=== PATIENT | female | born 1970 | race Caucasian/White ===

== ENCOUNTER 2020-10-05 14:18 | Outpatient (REF) | payer OTHER, SELFPAY | END 2020-10-05 14:19 | disposition home or self-care (01) | LOC: HO.LAB 14:18 | PROVIDERS: Visit Provider Internal Medicine | DX: Z20.828 Contact with and (suspected) exposure to other viral communicable diseases (principal) | CPT/HCPCS: C9803; U0003 ==

== ENCOUNTER 2021-01-30 08:33 | Day surgery (SDC) | payer OTHER, SELFPAY ==
[2021-01-24 11:41] VITALS: BMI 28.2
[2021-01-30 08:44] VITALS: BP 116/73; PULSE 78; RESP 20; TEMP 36.4; O2SAT 98
--- NOTE | 2021-01-30 09:20 | HO.ANESPROP2 ---
[facility] Past Medical History Medical History Arthritis History of COVID-19 Surgical History Surgical History History of bladder suspension procedure Hx of abdominoplasty Hx of tubal ligation Social History Social History Alcohol intake: current Alcohol intake frequency: a few times a week Alcohol type: beer Smoking Status: Current every day smoker Cigarettes Per Day: 5 Smoked in Last 30 Days: Yes Use of substances other than those prescribed or required for medical reasons: No Advance Directives: No Advance Directives Information Provided: No Advance Directives on File: No Meds Allergies Allergy/AdvReac Type Severity Reaction Status Date / Time No Known Allergies Allergy Verified 01/24/21 11:28 Active Medications: Current Medications Generic Name Dose Route Start Last Admin Trade Name Freq PRN Reason Stop Dose Admin Sodium Biphosphate/Sodium Phosphate 133 ml 01/30/21 08:31 Sodium Phosphate,[place]-Dibasic 133 Ml Enema [place] ONCE PRN Poor Colonoscopy Prep Results Home Medications Medication Instructions Recorded Confirmed Last Taken Type Vitamin D3 01/24/21 01/24/21 Unknown History vitamin I35-cjuqp acid 01/24/21 Unknown History Exam Exam Date and Time: January 30, 2021 0920 Height,Weight and Vital Signs: Height 5 ft 6 in Weight 79.379 kg Last Vital Signs Temp 97.5 F 01/30/21 08:44 Pulse 78 01/30/21 08:44 Resp 20 01/30/21 08:44 BP 116/73 01/30/21 08:44 Pulse Ox 98 01/30/21 08:44 Airway Mallampati Class: II TM Dist: >3cm Neck ROM: Full
[2021-01-30] MEDS: Lactated Ringers 1,000 ML 100 ML IVCONT (09:31)
[2021-01-30 10:25] VITALS: BP 90/55; PULSE 72; RESP 18; TEMP 36.4; O2SAT 98
--- NOTE | 2021-01-30 10:27 | PM.OP ---
Brief Operative Note Date of Service: 01/30/21 Pre-op diagnosis: Screening Post-op diagnosis: other (Int/Ext Hemorrhoids, mild sigmoid diverticulosis) Procedure: Colonoscopy to cecum and TI Surgeon: Evangelista Pineda Anesthesia: MAC Estimated blood loss (mL): 0 Pathology: none sent Condition: stable Disposition: PACU
[2021-01-30 10:30] VITALS: PULSE 73; RESP 18; O2SAT 100
[2021-01-30 10:40] VITALS: BP 103/67; PULSE 77; RESP 16; O2SAT 100
--- NOTE | 2021-01-30 10:57 | OP_ITS ---
SURGEON: Evangelista Pineda MD INDICATIONS: The patient presents for evaluation of colorectal cancer screening. Full consent has been obtained from her for this, including risks of bleeding and perforation. PREOPERATIVE DIAGNOSIS: Colorectal cancer screening. POSTOPERATIVE DIAGNOSIS: PROCEDURE PERFORMED: Colonoscopy to the cecum and terminal ileum. ESTIMATED BLOOD LOSS: COMPLICATIONS: ANESTHESIA: Monitored anesthesia care. ASSISTANTS: SPECIMENS: POSTOPERATIVE DIAGNOSES: Colorectal cancer screening, sigmoid diverticulosis, and internal hemorrhoids. DESCRIPTION OF PROCEDURE: The patient was placed in the left lateral decubitus position. The digital rectal exam revealed external hemorrhoids. The Olympus video pediatric colonoscope was entered into the rectum and advanced easily to the cecum. Once in the cecum, I did identify normal-appearing cecal pouch with appendiceal orifice and a normal-appearing ileocecal valve. The terminal ileum was cannulated and appeared normal. The scope was withdrawn back in the colon. The entire cecum and ileocecal valve appeared normal. The scope was slowly withdrawn assessing all mucosal surfaces carefully. Preparation was excellent. I did not visualize any sign of polyps, colitis, nor angiodysplasia. There were occasional diverticula in the sigmoid colon. In the rectum, scope was retroflexed visualizing internal hemorrhoids, but no other pathology. The rectal mucosa appeared normal. The scope was straightened out and withdrawn from the patient. She tolerated the procedure well and was returned to the recovery area in stable condition. IMPRESSION: 1. Mild sigmoid diverticulosis. 2. Internal and external hemorrhoids. PLAN: Given this negative exam and negative family history, I would recommend a followup colonoscopy in 10 years for further screening. She will otherwise see me on a p.r.n. basis. Evangelista Pineda MD [facility] / [id number] MTDD
== END 2021-01-30 11:52 | disposition home or self-care (01) ==
PROVIDERS: PCP Internal Medicine; Visit Provider Internal Medicine
PROC: 0DJD8ZZ Inspection of Lower Intestinal Tract, Via Natural or Artificial Opening Endoscopic (ICD-10-PCS; CPT 45378; principal; 2021-01-30 10:00)
DX: Z12.11 Encounter for screening for malignant neoplasm of colon (principal); K57.30 Diverticulosis of large intestine without perforation or abscess without bleeding; K64.8 Other hemorrhoids; Z86.16 Personal history of COVID-19; F17.210 Nicotine dependence, cigarettes, uncomplicated
CPT/HCPCS: 45378

== ENCOUNTER 2021-06-07 13:52 | Outpatient (REF) | payer OTHER, SELFPAY ==
--- NOTE | ~2021-06-07 | MM_ITS ---
EXAMINATION: MM SCREENING DIGITAL BREAST TOMOSYNTHESIS, BILATERAL CLINICAL INFORMATION: Screening. Asymptomatic. Reduction mammoplasty 2013. The lifetime risk of breast cancer based on the Tyrer-Cuzick Model is 8%. COMPARISON: Mammography: 05/19/2020, 05/14/2019, 04/29/2018 TECHNIQUE: Digital breast tomosynthesis is performed in both the craniocaudal and mediolateral oblique views along with computer-aided detection (CAD). Synthesized 2D images are generated from the tomosynthesis. FINDINGS: There are scattered areas of fibroglandular density (ACR BI-RADS breast composition Category b). There are no significant masses, abnormal calcifications, or other abnormalities. There is minor scarring and stable benign round and rim calcifications in the anterior breasts consistent with prior reduction mammoplasty. No developing density. No significant changes. MM/MM tomosynthesis screening BI IMPRESSION: No mammographic evidence of malignancy. ASSESSMENT: BI-RADS 2: Benign RECOMMENDATION: Routine annual mammography screening. This patient's information was entered into a reminder system with a target due date for their next mammogram.
== END 2021-06-07 13:53 | disposition home or self-care (01) ==
LOC: HO.MAMMO 13:52
PROVIDERS: PCP Internal Medicine; Visit Provider Internal Medicine
DX: Z12.31 Encounter for screening mammogram for malignant neoplasm of breast (principal)
CPT/HCPCS: 77063; 77067

== ENCOUNTER 2021-12-05 13:26 | Outpatient (REF) | payer OTHER, SELFPAY ==
--- NOTE | ~2021-12-05 | US_ITS ---
EXAMINATION: BILATERAL LOWER EXTREMITY DUPLEX CLINICAL INFORMATION: Cramping and spasm TECHNIQUE: Real-time ultrasound and Doppler techniques (integrating B-mode 2-D vascular images, Doppler spectral analysis and color flow Doppler imaging) were utilized to interrogate the lower extremities. COMPARISON: None FINDINGS: RIGHT LEG: Common femoral artery: 283 cm/s, Triphasic Profunda femoris artery: 104 cm/s, Triphasic Superficial femoral artery (proximal): 156 cm/s, Triphasic Superficial femoral artery (mid): 110 cm/s, Triphasic Superficial femoral artery (distal): 68 cm/s, Triphasic Popliteal artery: 69 cm/s, Triphasic Posterior tibial artery: 132 cm/s, Triphasic LEFT LEG: Common femoral artery: 188 cm/s, Triphasic Profunda femoris artery: 85 cm/s, Triphasic Superficial femoral artery (proximal): 151 cm/s, Triphasic Superficial femoral artery (mid): 122 cm/s, Triphasic Superficial femoral artery (distal): 75 cm/s, Triphasic Popliteal artery: 62 cm/s, Triphasic Posterior tibial artery: 119 cm/s, Triphasic US/US arterial duplex LE BI IMPRESSION: There is no evidence of any hemodynamically significant lower extremity arterial disease by waveform. There are elevated velocities bilaterally, however no plaque is identified so this may be either artifact or secondary to hypertension.
== END 2021-12-05 13:27 | disposition home or self-care (01) ==
LOC: HO.US 13:26
PROVIDERS: Visit Provider Family Medicine
DX: R25.2 Cramp and spasm (principal)
CPT/HCPCS: 93925

== ENCOUNTER → 2022-05-08 09:12 | Outpatient (BNVA) | payer OTHER, SELFPAY | PROVIDERS: PCP Internal Medicine; Visit Provider Surgery Vascular Surgery | DX: I83.12 Varicose veins of left lower extremity with inflammation (principal) | CPT/HCPCS: 99202 ==

== ENCOUNTER 2022-06-25 13:02 | Outpatient (REF) | payer OTHER, SELFPAY ==
--- NOTE | ~2022-06-25 | MM_ITS ---
EXAMINATION: MM SCREENING DIGITAL BREAST TOMOSYNTHESIS, BILATERAL CLINICAL INFORMATION: Screening. Asymptomatic. Prior reduction mammoplasty, 2013. The lifetime risk of breast cancer based on the Tyrer-Cuzick Model is 6%. COMPARISON: Mammography: 06/07/2021, 05/19/2020, 05/14/2019 TECHNIQUE: Digital breast tomosynthesis is performed in both the craniocaudal and mediolateral oblique views along with computer-aided detection (CAD). Synthesized 2D images are generated from the tomosynthesis. FINDINGS: There are scattered areas of fibroglandular density (ACR BI-RADS breast composition Category b). Parenchymal pattern is similar to prior studies. There is minor scarring and bilateral scattered round and rim and dermal calcifications anterior breasts consistent with prior reduction mammoplasty. There is no developing density or interval mass or architectural abnormality. No interval abnormal calcifications. Intramammary node again seen mid upper outer right breast. The axilla are unremarkable. No significant changes. MM/MM tomosynthesis screening BI IMPRESSION: -No mammographic evidence of malignancy. -Post surgical changes. ASSESSMENT: BI-RADS 2: Benign RECOMMENDATION: Routine annual mammography screening. This patient's information was entered into a reminder system with a target due date for their next mammogram.
== END 2022-06-25 13:03 | disposition home or self-care (01) ==
LOC: HO.MAMMO 13:02
PROVIDERS: Visit Provider Internal Medicine
DX: Z12.31 Encounter for screening mammogram for malignant neoplasm of breast (principal)
CPT/HCPCS: 77063; 77067

== ENCOUNTER 2022-07-10 10:18 | Outpatient (REF) | payer OTHER, SELFPAY ==
--- NOTE | ~2022-07-10 | US_ITS ---
EXAMINATION: US LOWER EXTREMITY VENOUS (REFLUX EXAM), BILATERAL CLINICAL INDICATION: This is a 51-year-old female with venous insufficiency and varicose veins. History of left sclerotherapy. COMPARISON: None. TECHNIQUE: Color flow triplex imaging and compression Doppler was performed to evaluate both the deep and the superficial systems bilaterally. To evaluate the superficial system, the examination was performed in the upright position. Color-flow Doppler ultrasound and compression ultrasound were utilized. In addition, maneuvers were utilized to demonstrate reflux. FINDINGS: 1. DEEP VENOUS ULTRASOUND OF THE RIGHT LOWER EXTREMITY: Common Femoral Vein: Compressible, normal respiratory variation and augmented flow. Femoral vein: Compressible, normal color flow and augmentation. Popliteal Vein: Compressible, normal augmentation. Deep Reflux: There is no evidence of reflux in the deep system in either the common femoral vein or the popliteal vein. There is no evidence of a Lazcano's cyst. 2. SUPERFICIAL ULTRASOUND WITH DOPPLER OF RIGHT LOWER EXTREMITY: GREAT SAPHENOUS VEIN: Saphenofemoral Junction: 0.8 cm. There is no reflux. Mid Thigh: 0.3 cm. There is no reflux. Above Knee: 0.4 cm. There is no evidence of reflux at this level and above. Below Knee: 0.2 cm. The reflux time is 1272 ms. Mid Calf: 0.2 cm. The reflux time is 884 ms. Ankle: 0.2 cm. There is no reflux. GSV REFLUX: No evidence of reflux. DUPLICATED GREAT SAPHENOUS VEIN: None SMALL SAPHENOUS VEIN: Proximal: 0.2 cm Distal: 0.2 cm SSV REFLUX: No evidence of reflux. VEIN OF GIACOMINI: None Imaged. PERFORATORS: There is a 0.3 cm mid calf recycling manager without reflux. VARICOSITIES: There are 0.5 cm and 0.3 cm thigh varicose veins without reflux. 3. DEEP VENOUS ULTRASOUND OF THE LEFT LOWER EXTREMITY: Common Femoral Vein: Compressible, normal respiratory variation and augmented flow. Femoral Vein: Compressible, normal color flow and augmentation. Popliteal Vein: Compressible, normal augmentation. Deep Reflux: There is no evidence of reflux in the deep system in either the common femoral vein or the popliteal vein. There is no evidence of a Lazcano's cyst. 4. SUPERFICIAL ULTRASOUND WITH DOPPLER OF LEFT LOWER EXTREMITY: GREAT SAPHENOUS VEIN: Saphenofemoral Junction: 0.8 cm. There is no reflux. Mid Thigh: 0.3 cm Above Knee: 0.3 cm. There is no reflux. Below Knee: 0.2 cm. The reflux time is 1192 ms. Mid Calf: 0.2 cm. There is no reflux to Ankle: 0.1 cm. There is no reflux. GSV REFLUX: There is only isolated reflux present. No reflux is seen at the junction. DUPLICATED GREAT SAPHENOUS VEIN: None SMALL SAPHENOUS VEIN: Proximal: 0.2 cm. There is no reflux. Distal: 0.1 cm. The reflux time is 1528 ms per SSV REFLUX: No evidence of reflux. VEIN OF GIACOMINI: None Imaged. PERFORATORS: There are 0.2 cm perforators in the calf without reflux. VARICOSITIES: None Imaged US/US venous duplex LE BI IMPRESSION: 1. Incidental note is made of fluid collections in the proximal medial thighs bilaterally. Clinical correlation is recommended. 2. There is a patent right great saphenous vein without evidence of reflux at the junction and extending down to the knee. Some reflux is seen in the calf. 3. There is a patent right small saphenous vein without evidence of reflux. 4. There are right-sided varicose veins without reflux. 5. There is a patent left great saphenous vein without evidence of reflux at the junction and into the thigh. 6. There is a patent left small saphenous vein without reflux at the junction. Distal reflux is seen.
== END 2022-07-10 10:19 | disposition home or self-care (01) ==
LOC: HO.US 10:18
PROVIDERS: Visit Provider Surgery Vascular Surgery
DX: I83.12 Varicose veins of left lower extremity with inflammation (principal)
CPT/HCPCS: 93970

== ENCOUNTER → 2022-07-17 09:41 | Outpatient (BNVA) | payer OTHER, SELFPAY | PROVIDERS: PCP Internal Medicine; Visit Provider Surgery Vascular Surgery | DX: I83.12 Varicose veins of left lower extremity with inflammation (principal) | CPT/HCPCS: 99212 ==

== ENCOUNTER 2023-01-30 11:37 | Outpatient (REF) | payer OTHER, SELFPAY ==
--- NOTE | 2023-01-30 10:15 | EMG_ITS ---
Please see scanned EMG / Nerve Conduction Report. MTDD
== END 2023-01-30 11:38 | disposition home or self-care (01) ==
LOC: HO.NEURO 11:37
PROVIDERS: PCP Internal Medicine; Visit Provider Internal Medicine
DX: G56.03 Carpal tunnel syndrome, bilateral upper limbs (principal)
CPT/HCPCS: 95885; 95913

== ENCOUNTER 2023-07-03 14:08 | Outpatient (REF) | payer OTHER, SELFPAY ==
--- NOTE | ~2023-07-03 | MM_ITS ---
EXAMINATION: MM SCREENING DIGITAL BREAST TOMOSYNTHESIS, BILATERAL CLINICAL INFORMATION: Screening. Asymptomatic. She has a history of prior breast reduction. The lifetime risk of breast cancer based on the Tyrer-Cuzick Model is 6.8%. COMPARISON: Mammography: This study is compared with prior exams dating back to 2017. TECHNIQUE: Digital breast tomosynthesis is performed in both the craniocaudal and mediolateral oblique views along with computer-aided detection (CAD). Synthesized 2D images are generated from the tomosynthesis. FINDINGS: There are scattered areas of fibroglandular density (ACR BI-RADS breast composition Category b). There are no significant masses, abnormal calcifications, or other abnormalities. There are changes of bilateral breast reduction. MM/MM tomosynthesis screening BI IMPRESSION: No mammographic evidence of malignancy. ASSESSMENT: BI-RADS BI-RADS 2 - Benign Findings RECOMMENDATION: Routine annual mammography screening. 1 year F/U This examination should not preclude the clinical evaluation of a suspicious palpable abnormality. This patient's information was entered into a reminder system with a target due date for their next mammogram.
== END 2023-07-03 14:09 | disposition home or self-care (01) ==
LOC: HO.MAMMO 14:08
PROVIDERS: PCP Internal Medicine; Visit Provider Internal Medicine
DX: Z12.31 Encounter for screening mammogram for malignant neoplasm of breast (principal)
CPT/HCPCS: 77063; 77067

== ENCOUNTER → 2023-07-03 14:45 | Outpatient (BNV) | payer OTHER, SELFPAY | PROVIDERS: PCP Internal Medicine; Visit Provider Radiology Diagnostic Radiology | DX: Z12.31 Encounter for screening mammogram for malignant neoplasm of breast (principal) | CPT/HCPCS: 77063; 77067 ==

== ENCOUNTER 2023-11-06 10:36 | Outpatient (AMB) | payer OTHER, SELFPAY ==
--- NOTE | 2023-11-06 10:39 | MHC.OFFVIS ---
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 Patient reports her left is worse. States she is having increase numbness and tingling. Last EMG was done in 2007 and recent EMG was ordered by PCP who referred patient to orthopedics. States she use to wear brace however it is not helping any more. Patient is interested in surgical intervention. 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 She states she has sharp numbness and tingling in her bilateral hands and fingers since 2008 which has been worsening since 2019. Her left hand is worse in her right. Her pain is aggravated with sleeping and talking on phone for long time. She had her last EMG study performed in 2007 and a recent EMG was ordered by her PCP who referred her to our office. She had tried brace in the past which has not been helping anymore. She would like to have a surgical intervention on her left hand. 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[employer] Review of Systems Const All systems reviewed & are unremarkable except as noted in HPI and below Physical Exam Vital Signs: BMI result Body Mass Index 29.9 Const General: cooperative, healthy appearing, comfortable, no acute distress, well developed and alert Orientation/consciousness: patient oriented x3 HEENT Head: Yes normal to inspection, Yes normocephalic and Yes atraumatic Eyes General: appearance normal, both eyes and all related structures Resp Effort & Inspection: normal respiratory effort and able to speak in complete sentences Cardio Rate: regular rate Peripheral pulses: Peripheral pulses 2+ throughout GI Palpation (GI): Soft to palpation Skin Lesions: no lesions Rashes: no rashes Neuro General: patient oriented x3 Extrem Other: Bilateral wrist: Normal to inspection. Tenderness over the carpal canal. Numbness and tingling over the median nerve distribution of the right hand. Able to make a full fist and fully extend all fingers. Positive Tinel's. Results Reviewed Results Reviewed: Assessment & Plan Assessment & Plan (1) Bilateral carpal tunnel syndrome: Code(s): G56.03 - Carpal tunnel syndrome, bilateral upper limbs Plan We discussed options which include conservative vs operative treatment. Since the patient has been symptomatic for several months and it is impacting their daily life, the decision was made to undergo right carpal tunnel release. We discussed risk, benefits and alternatives. Risk including but not limited to infection, weakness, stiffness, ongoing numbness or tingling. The patient does understand all this and would like to proceed with left carpal tunnel release with Dr. New. They will be booked accordingly. Patient Instructions: Scribed for Randy Carter PA-C, by Lee England bio medical technician, on 11/06/2023 at 11:00 AM EST. IRandy PA-C, have personally reviewed and agree with the information entered by the scribe. Coding Level of Care Code New Pt Level 4 (54911) Diagnoses Bilateral carpal tunnel syndrome G56.03
[2023-11-06 10:54] VITALS: BMI 29.9
== END 2023-11-06 11:19 | disposition home or self-care (01) ==
PROVIDERS: PCP Internal Medicine; Visit Provider Physician Assistant
DX: G56.03 Carpal tunnel syndrome, bilateral upper limbs (principal)
CPT/HCPCS: 99204

== ENCOUNTER → 2023-11-06 10:36 | Outpatient (BNVA) | payer OTHER, SELFPAY | PROVIDERS: PCP Internal Medicine; Visit Provider Physician Assistant | DX: G56.03 Carpal tunnel syndrome, bilateral upper limbs (principal) | CPT/HCPCS: 99202 ==

== ENCOUNTER 2024-02-05 09:34 | Outpatient (REF) | payer OTHER, SELFPAY ==
[2024-02-05 11:19] LABS: MANUAL DIFF FLAG NO
[2024-02-05 11:38] LABS: Basophils Absolute Auto 0.1 X10*3/uL (0.0-0.2); Basophils Percent Auto 0.7 % (0-2); Eosinophils Absolute Auto 0.3 X10*3/uL (0.0-0.4); Eosinophils Percent Auto 4.2 % (0-4); Hematocrit 43.4 % (37.0-47.0); Hemoglobin 13.9 g/dl (12.0-16.0); Imm Gran Abs Auto 0.02 X10*3/uL (0.00-0.03); Imm Gran Pct Auto 0.3 % (0.0-0.4); Lymphocytes Absolute Auto 2.1 X10*3/uL (1.2-4.9); Lymphocytes Percent Auto 29.2 % (20-40); Mean Corpuscular Volume 90.6 fL (80.0-98.0); Mean Platelet Volume 12.3 fL (9.4-12.3); Monocytes Absolute Auto 0.6 X10*3/uL (0.1-1.2); Monocytes Percent Auto 8.2 % (2-11); Neutrophils Absolute Auto 4.2 x10*3/uL (2.0-8.3); Neutrophils Percent Auto 57.4 % (45-73); Platelet Count 220 X10*3/uL (160-400); Red Blood Count 4.79 X10*6/uL (4.20-5.50); Red Cell Distribution Width 12.3 % (11.0-16.0); White Blood Count 7.3 X10*3/uL (4.8-10.8)
[2024-02-05 12:17] LABS: Alanine Aminotransferase 18 U/L (0-31); Albumin Level 4.2 g/dL (3.5-5.0); Alkaline Phosphatase 70 U/L (39-117); Anion Gap 11 (12-20); Aspartate Amino Transferase 18 U/L (5-31); Bilirubin Total 0.9 mg/dL (0.0-1.0); Blood Urea Nitrogen 12 mg/dL (9-16); Calcium 9.5 mg/dL (8.4-10.2); Carbon Dioxide 30 mmol/L (22-29); Chloride 105 mmol/L (96-108); Cholesterol 215 mg/dL (<200); Estimated Glomerular Filt Rate > 60; Glucose Random 94 mg/dL (60-115); HDL Cholesterol 47 mg/dL (>40); LDL Cholesterol Calculated 141 mg/dL (<100); Potassium 4.2 mmol/L (3.3-5.1); Sodium 142 mmol/L (135-145); Total Protein 7.2 g/dL (6.5-8.0); Triglycerides 137 mg/dL (<150)
[2024-02-05 12:41] LABS: TSH reflex Free T4 1.94 uIU/mL (0.32-4.0); Vitamin D 25-OH Total 66.6 ng/mL (>30)
[2024-02-05 14:58] LABS: Estimated Average Glucose 114 mg/dL; Hemoglobin A1c % 5.6 % (<6.0)
[2024-02-06 22:34] LABS: Rubella IgG Antibody 4.76 Index; Rubeola IgG (Measles) >300.00 AU/mL
== END 2024-02-05 09:35 | disposition home or self-care (01) ==
LOC: HO.HHCL 09:34
PROVIDERS: Visit Provider Internal Medicine
DX: E66.09 Other obesity due to excess calories (principal); Z68.31 Body mass index [BMI] 31.0-31.9, adult; R79.89 Other specified abnormal findings of blood chemistry
CPT/HCPCS: 36415; 80053; 80061; 82306; 83036; 84443; 85025; 86735; 86762; 86765

== ENCOUNTER 2024-04-13 09:45 | Outpatient (REF) | payer MEDICAID, SELFPAY ==
[2024-04-14 09:29] LABS: HBS Num1 0.24 mIU/mL (0-7.99); HBc Num1 0.12 S/CO (0.00-0.79); HBsAGNum1 0.23 S/CO (0.00-0.99); HIV AB/AG Nonreactive (Nonreactive); HIV Num 1 0.04 S/CO (0.00-0.99); Hepatitis B Core Antibody Nonreactive (Nonreactive); Hepatitis B Surface Antigen Negative (Negative); ~Hepatitis B Surface Antibody NONREACTIVE (Nonreactive)
[2024-04-14 09:47] LABS: Syphilis Screen Nonreactive (Nonreactive)
[2024-04-17 02:18] LABS: C. trachomatis RNA TMA NOT DETECTED (NOT DETECTED); N. gonorrhoeae RNA TMA NOT DETECTED (NOT DETECTED)
[2024-04-17 03:14] LABS: HPV mRNA E6/E7 rflx Not Detected (Not Detected)
[2024-04-17 04:34] LABS: Trichomonas (NAAT) NOT DETECTED (NOT DETECTED)
== END 2024-04-13 09:46 | disposition home or self-care (01) ==
LOC: HO.HHCL 09:45
PROVIDERS: Visit Provider Advanced Practice Midwife
DX: Z11.3 Encounter for screening for infections with a predominantly sexual mode of transmission (principal)
CPT/HCPCS: 36415; 86704; 86706; 86780; 87340; 87389; 87491; 87591; 87624; 87661; 88142

== ENCOUNTER 2024-07-06 13:23 | Outpatient (REF) | payer OTHER, SELFPAY ==
--- NOTE | ~2024-07-06 | MM_ITS ---
EXAMINATION: MM SCREENING DIGITAL BREAST TOMOSYNTHESIS, BILATERAL CLINICAL INFORMATION: Screening. Asymptomatic. Patient has a prior history of breast reduction. COMPARISON: Mammography: This study is compared with prior exams dating back to 2019. TECHNIQUE: Digital breast tomosynthesis is performed in both the craniocaudal and mediolateral oblique views along with computer-aided detection (CAD). Synthesized 2D images are generated from the tomosynthesis. FINDINGS: There are scattered areas of fibroglandular density (ACR BI-RADS breast composition Category b). There are no significant masses, abnormal calcifications, or other abnormalities. Postreduction changes are present in each breast. MM/MM tomosynthesis screening BI IMPRESSION: No mammographic evidence of malignancy. ASSESSMENT: BI-RADS BI-RADS 2 - Benign Findings RECOMMENDATION: Routine annual mammography screening. 1 year F/U This examination should not preclude the clinical evaluation of a suspicious palpable abnormality. This patient's information was entered into a reminder system with a target due date for their next mammogram. Electronically signed by: Brenda Preciado MD 07/30/2024 08:32 PM EDT
== END 2024-07-06 13:24 | disposition home or self-care (01) ==
LOC: HO.MAMMO 13:23
PROVIDERS: PCP Internal Medicine; Visit Provider Internal Medicine
DX: Z12.31 Encounter for screening mammogram for malignant neoplasm of breast (principal)
CPT/HCPCS: 77063; 77067

== ENCOUNTER → 2024-07-06 13:45 | Outpatient (BNV) | payer OTHER, SELFPAY | PROVIDERS: PCP Internal Medicine; Visit Provider Radiology Diagnostic Radiology | DX: Z12.31 Encounter for screening mammogram for malignant neoplasm of breast (principal) | CPT/HCPCS: 77063; 77067 ==

== ENCOUNTER 2024-09-08 13:36 | Outpatient (REF) | payer OTHER, SELFPAY ==
[2024-09-08 17:09] LABS: Alanine Aminotransferase 23 U/L (0-31); Albumin Level 4.4 g/dL (3.5-5.0); Alkaline Phosphatase 63 U/L (39-117); Anion Gap 16 (12-20); Aspartate Amino Transferase 23 U/L (5-31); Bilirubin Total 1.5 mg/dL (0.0-1.0); Blood Urea Nitrogen 14 mg/dL (9-16); Calcium 9.8 mg/dL (8.4-10.2); Carbon Dioxide 25 mmol/L (22-29); Chloride 104 mmol/L (96-108); Estimated Glomerular Filt Rate > 60; Glucose Random 110 mg/dL (60-115); Potassium 3.7 mmol/L (3.3-5.1); Sodium 141 mmol/L (135-145); Total Protein 7.3 g/dL (6.5-8.0)
[2024-09-08 17:17] LABS: TSH reflex Free T4 1.44 uIU/mL (0.32-4.0)
== END 2024-09-08 13:37 | disposition home or self-care (01) ==
LOC: HO.HHCL 13:36
PROVIDERS: Visit Provider Internal Medicine
DX: I10 Essential (primary) hypertension (principal)
CPT/HCPCS: 36415; 80053; 84443

== ENCOUNTER → 2025-02-23 13:10 | Outpatient (BNVA) | payer SELFPAY | PROVIDERS: PCP Internal Medicine; Visit Provider Physician Assistant Medical | DX: Z02.79 Encounter for issue of other medical certificate (principal) ==

== ENCOUNTER 2025-04-13 16:04 | Outpatient (REF) | payer MEDICAID, SELFPAY ==
--- OUTSIDE RECORDS SUMMARY | 2025-04-13 16:43 | XMS_ITS | Clinical Summary ---
Author Organization [employer] Address [address] [facility] 7[address] [place] [address] Care Team Providers Care Lcac Operator Name Role Phone Jamie Rashid MD Primary Care Prov ider Allergies No known active allergies Medications capsaicin (Capzasin-HP) 0.1 % cream Apply topically 2 times daily. 1 Active triamcinolone (Kenalog) 0.5 % cream Apply topically every 12 (twelve) hours. 1 Active zoster vaccine-recombina nt adjuvanted (Shingrix) 50 MCG/0.5ML vaccine Inject 0.5 mL into the shoulder, thigh, or buttocks. 2 Active Blood Pressure kitIndications:Pr imary hypertension 1 kit Once per day. 1 kit 4 Active losartan (Cozaar) 25 MG tablet Take 1 tablet (25 mg) by mouth Once per day. 90 tablet 3 4 11/12/20 25 Active hydroCHLOROthiazi de (HYDRODiuril) 25 MG tabletIndications :Primary hypertension Take 1 tablet (25 mg) by mouth Once per day. 90 tablet 3 4 11/12/20 25 Active Active Problems Problem Noted Date Diagnosed Date Primary hypertension 06/09/2024 Assessment & Plan (11/12/2024 10:44 AM EST): Controlled, continue hydrochlorothiazide/losartan, keep low sodium diet and exercise as tolerated, will follow up in 3 months Assessment & Plan (10/06/2024 6:59 PM EST): Uncontrolled, asymptomatic, will add losartan 25mg continue hydrochlorothiazide 25mg encouraged low sodium diet and exercise as tolerated, keep bp log, will follow up in 1 month Assessment & Plan (09/08/2024 1:40 PM EDT): Patient here at our [facility] with c/o palpitation and elevated blood pressure at home BP today 188/82 Exam otherwise unremarkable, EKG normal Pt has a strong family Hx of HTN Plan: Start hydrochlorothiazide 12.5 mg po daily. Pt instructed to increase to 25 mg po daily if Systolic BP still > 145 after 1 week Obtain BMP, TSH, BP monitor sent to her pharmacy Follow up with PCP in 1 month for BP check Assessment & Plan (07/09/2024 11:49 AM EDT): Has remained controlled at home, keep low sodium diet and exercise as tolerated, will follow up in 6-8 months Assessment & Plan (06/09/2024 8:22 AM EDT): Will send order for a blood pressure kit, keep bp log, target <140/90, if constantly above target schedule a visit to discuss treatment, keep low sodium diet and office clinician as tolerated Annual physical exam 06/09/2024 Assessment & Plan (06/09/2024 8:24 AM EDT): Found with bp elevated, told to keep low sodium diet, bp kit will be sent Pending colonoscopy results will follow up Pending pap smear Encounters Date Type Department Care Team Description 04/13/2025 3:45 PM EDT Office Visit [facility] [address] [place] [phone] Echo Walton CNM Visit for pelvic exam (Primary Dx); Screening examination for venereal disease 04/13/2025 Travel 03/09/2025 11:00 AM EDT Immunization [facility] [address] [place] [address] Saira Alanis LPN Encounter for immunization (Primary Dx) 03/08/2025 11:00 AM EDT Office Visit [facility] [address] [place] [address] [place] Marc Dental caries (Primary Dx) 03/01/2025 Telephone [facility] [address] [place] [address] Jamie Rashid MD Insurance 02/05/2025 Population Health Risk Score [facility] ([facility] Department [address] [place] [address] [phone] Provider, Population Health Generic from Last 3 Months Immunizations Immunization Administration Dates Next Due Hep B, adult 03/09/2025,06/17/2024,05/14/2024 Influenza injectable quadriv alent IIV4 with preservative 09/02/2018,08/20/2016,08/12/2015 Influenza injectable quadriv alent preservative free 09/16/2020,09/10/2017 Tdap 11/16/2016 Zoster, Recombinant 08/06/2022,03/29/2022 Family History Medical History Relation Name Comments Breast cancer Neg Hx Colon cancer Neg Hx Ovarian cancer Neg Hx Social History Tobacco Use Types Packs/Day Years Used Date Smoking Tobacco: Never Passive Smoke Exposure: Never Smokeless Tobacco: Never Tobacco Cessation:Counseling Given: Not Answered Alcohol Use Standard Drinks/Week Comments Yes 5 (1 standard drink = 0.6 oz pur e alcohol) Depression Answer Date Recorded Patient Health Questionnaire-9 Score 1 02/04/2024 Patient Health Questionnaire-9 Score 1 02/04/2024 Last PHQ-9: Questionnaire Data Not on file 0 02/04/2024 Housing Stability Answer Date Recorded What is your housing situation today? I have masood kelley 02/04/[address] you li ve. Do you have problems with any of the following? None of the above 02/04/2024 Food Insecurity Answer Date Recorded Within the past 12 months, y ou worried that your food would run out before you got money to buy more: Never True 02/04/2024 Within the past 12 months,th e food you bought just didn't last and you didn't have enough money to get more: Never True 10/2024 Transportation Answer Date Recorded In the past 12 months, has l ack of transportation kept you from medical appts, meetings, work or from getting things needed for daily living? No 02/04/2024 Utilities Answer Date Recorded In the past 12 months, has t he electric, gas, oil or water company threatened to shut off services in your home? No 02/04/2024 Depression Answer Date Recorded Patient Health Questionnaire-2 Score 0 02/04/2024 Comments No Sex and Gender Information Value Date Recorded Sex Assigned at Female 09/24/2022 10:20 AM EDT Legal Sex Female 10:20 AM EDT Gender Identity Female 09/24/2022 10:20 AM EDT Sexual Orientation Straight 09/24/2022 10 :20 AM EDT Last Filed Vital Signs Vital Sign Reading Time Taken Comments Blood Pressure 146/90 04/13/2025 3:46 PM EDT Pulse 78 04/13/2025 3:46 PM EDT Temperature 36.8 ??C (98.3 ??F) 04/13/2025 3:46 PM ED T Respiratory Rate 18 04/13/2025 3:46 PM EDT Oxygen Saturation 97% 09/08/2024 12: 28 PM EDT room air Inhaled Oxygen Concentration - - Weight 80.2 kg (176 lb 12.8 oz) 04/13/2025 3:46 PM EDT Height 167.6 cm (5' 6 ) 04/13/2025 3:46 PM EDT Body Mass Index 28.54 04/13/2025 3:46 PM EDT Plan of Treatment Upcoming Encounters Date Type Department Care Team (Late st Contact Info) Description 06/29/2025 10:45 AM EDT Office Visit [facility] [address] [place] [address] Jamie Rashid MD [address] [place] [address] 09/09/2025 3:00 PM EDT Office Visit [facility] ADULT DENTAL [address] [place] [address] [place] Marc Health Maintenance Due Date Last Done Comments CT Colonography 1970 FIT DNA/Cologuard 1970 FIT 1970 FOBT 1970 Sigmoidoscopy 1970 Disability Screening 1970 Alcohol/Substance Use Screening 1982 Pneumococcal Vaccine: 50+ Years (1 of 1 - PCV) 2020 COVID-19 Vaccine (4 - 2024-25 season) 2024 04/10/2022, 01/26/2021, 12/29/2020 Influenza Vaccine (#1) 2024 , 09/02/2018, 09/10/2017, Additional history exists Depression Screening 02/03/2025 02/04/2024, 02/04/20 SDOH Screening 02/03/2025 02/04/2024 Dental Oral Exam 09/08/2025 03/08/2025, 10/2024, 08/08/2022, Additional history exists Dental Prophylaxis 09/08/2025 03/08/2025, 0 03/06/2024, 05/02/2023, Additional history exists Tobacco Screening 03/08/2026 03/08/2025 Dental X-Ray: Bitewings 03/09/2026 03/08/20, 03/06/2024, 02/14/2024, Additional history exists Mammogram 07/06/2026 07/06/2024, 0807/2023, 06/25/2022, Additional history exists DTaP/Tdap/Td Vaccines (2 - Td or Tdap) 11/16/2026 11/16/2016 Dental X-Ray: Full Mouth 03/07/2027 03/06/2024, 1003/2011 Lipid Panel 02/04/2029 02/05/2024, 05/1 , 10/04/2020 Cervical Cancer Screening 04/13/2029 HPV/Cotest 04/13/2029 04/13/2024, 05/26/2019 Pap Smear 04/13/2029 04/13/2024, 04/13/2024 Colonoscopy 01/30/2031 01/30/2021 Colorectal Cancer Screening 01/30/2031 RSV Patients and Patients Aged 60 years or older (1 - 1-dose 75+ series) 2045 Hepatitis C Screening Completed 04/03/2022 Zoster Vaccines Completed 08/06/2022, 03/29/2022 HIV Screening Completed 04/13/2024, 04/13/2022 Hepatitis B Vaccines Completed 03/09/2025, 06/17/2024, 05/14/2024 HIB Vaccines Aged Out No longer eligi ble based on patient's age to complete this topic HPV Vaccines Aged Out No longer eligi ble based on patient's age to complete this topic Hepatitis A Vaccines Aged Out No long er eligible based on patient's age to complete this topic IPV Vaccines Aged Out No longer eligi ble based on patient's age to complete this topic Meningococcal B Vaccine Aged Out No l onger eligible based on patient's age to complete this topic Meningococcal Vaccine Aged Out No lucrecia liam eligible based on patient's age to complete this topic RSV under 20 months Aged Out No longe r eligible based on patient's age to complete this topic Rotavirus Vaccines Aged Out No longer eligible based on patient's age to complete this topic Procedures Procedure Name Priority Date/Time Associated Diagnosis Comments PERIODIC ORAL EVALUATION - ESTABLISHED PATIENT Routine 03/08/2025 11:00 AM EDT Dental caries INTRAORAL - PERIAPICAL EACH ADDITIONAL RADIOGRAPHIC IMAGE Routine 03/08/2025 11:00 AM EDT Dental caries INTRAORAL - PERIAPICAL FIRST RADIOGRAPHIC IMAGE Routine 03/08/2025 11:00 AM EDT Dental caries BITEWINGS - 4 RADIOGRAPHIC IMAGES Routine 03/08/2025 11:00 AM EDT Dental caries ORAL HYGIENE INSTRUCTIONS Routine 03/08/2025 11:00 AM EDT Dental caries PROPHYLAXIS - ADULT Routine 03/08/2025 1 1:00 AM EDT Dental caries BI MAMMOGRAM SCREENING TOMOSYNTHESIS BILATERAL Routine 07/06/2024 1:45 PM EDT HIV 1/2 ANTIGEN/ANTIBODY, FOURTH GENERATION W/RFL Routine 04/13/2024 9:46 AM EDT Encntr screen for infections w sexl mode of transmiss HPV MRNA E6/E7 REFLEX TO HPV 16, 18/45 Routine 04/13/2024 8:21 AM EDT IMAGE-GUIDED PAP W/AGE BASED SCR,W/CT/NG/TRICH Routine 04/13/2024 8:21 AM EDT Cervical cancer screening Encntr screen for infections w sexl mode of transmiss INTRAORAL - COMPLETE SERIES OF RADIOGRAPHIC IMAGES Routine 03/06/2024 8:00 AM EDT LIPID PANEL, STANDARD Routine 02/05/2024 9:36 AM EDT Class 1 obesity due to excess calories without serious comorbidity with body mass index (BMI) of 31.0 to 31.9 in adult [employer] HISTORICAL HEPATITIS C AB W/REFL TO HCV RNA, QN, PCR Routine 04/03/2022 8:04 AM EDT HM COLONOSCOPY Routine 01/30/2021 8:36 AM EST from Last 3 Months or Most Recently Relevant to Health Maintenance Results * BI Mammogram Screening Tomosynthesis Bilateral (07/06/2024 1:45 PM EDT) Anatomical Region Laterality Modality Breast Bilateral Mammography 07/06/2024 1:45 PM EDT Narrative 07/30/2024 8:35 PM EDT ? [facility] [place] ? [address] ?[place] [address] ? Mammography Report ? Signed ? Patient: Miles,Yudelkis ?MR#: [id number] ?? [id number] ? : 1970 ?Acct:[id number] ? Age/Sex: 53 / F ?ADM Date: 07/06/24 ? Loc: HO.MAMMO ? Attending Dr: Jamie Benzbridgett Mendez MD ? Ordering Physician: Jamie Rashid MD ?Res ?? ults: 2Benign Findings ? Date of Service: 07/06/24 ?Follow Up: 1 Year From Orig ?? inal Mammogram ? Procedure(s): MM tomosynthesis screening BI ?? Accession Number(s): [id number] ? cc: Jamie Rashid MD ? EXAMINATION: ?? MM SCREENING DIGITAL BREAST TOMOSYNTHESIS, BILATERAL ? CLINICAL INFORMATION: ? Screening. Asymptomatic. ? Patient has a prior history of breast reduction. ? COMPARISON: ?? Mammography: This study is compared with prior exams dating back to ? 2019. ? TECHNIQUE: ?? Digital breast tomosynthesis is performed in both the craniocaudal and ?? mediolateral oblique views along with computer-aided detection (CAD). ? Synthesized 2D images are generated from the tomosynthesis. ? FINDINGS: ?? There are scattered areas of fibroglandular density (ACR BI-RADS breast ?? composition Category b). ? There are no significant masses, abnormal calcifications, or other ?? abnormalities. ? Postreduction changes are present in each breast. ? MM/MM tomosynthesis screening BI ?? IMPRESSION: ?? No mammographic evidence of malignancy. ? ASSESSMENT: ? BI-RADS BI-RADS 2 - Benign Findings ? RECOMMENDATION: ?? Routine annual mammography screening. ? 1 year F/U ? This examination should not preclude the clinical evaluation of a ?? suspicious palpable abnormality. ? This patient's information was entered into a reminder system with a ?? target due date for their next mammogram. ? Electronically signed by: ??Brenda Preciado MD ??07/30/2024 08:32 PM EDT RP ? Dictated By: ?Brenda Preciado MD ? Signed By: ?<Electronically signed by Brenda Preciado MD in OV> ? 07/30/242031 ? DD/ 1345 ? TD/TT: 07/06/24 1407 ? Drapery Examiner: ? Procedure Note Mahesh Valles - 07/30/2024 [place] [facility] [address] [place] [address] Mammography Report Signed Patient: Severino MilesR#: [id number] : 1970Acct:[id number] Age/Sex: 53 / FADM Date: 07/06/24 Loc: HO.MAMMO Attending Dr: Jamie Mendez MD Ordering Physician: Jamie Rashid ults: 2Benign Findings Date of Service: 07/06/24Follow Up: 1 Year From Orig inal Mammogram Procedure(s): MM tomosynthesis screening BI Accession Number(s): [id number] cc: Jamie Rashid MD EXAMINATION: MM SCREENING DIGITAL BREAST TOMOSYNTHESIS, BILATERAL CLINICAL INFORMATION: Screening. Asymptomatic. Patient has a prior history of breast reduction. COMPARISON: Mammography: This study is compared with prior exams dating back to 2019. TECHNIQUE: Digital breast tomosynthesis is performed in both the craniocaudal and mediolateral oblique views along with computer-aided detection (CAD). Synthesized 2D images are generated from the tomosynthesis. FINDINGS: There are scattered areas of fibroglandular density (ACR BI-RADS breast composition Category b). There are no significant masses, abnormal calcifications, or other abnormalities. Postreduction changes are present in each breast. MM/MM tomosynthesis screening BI IMPRESSION: No mammographic evidence of malignancy. ASSESSMENT: BI-RADS BI-RADS 2 - Benign Findings RECOMMENDATION: Routine annual mammography screening. 1 year F/U This examination should not preclude the clinical evaluation of a suspicious palpable abnormality. This patient's information was entered into a reminder system with a target due date for their next mammogram. Electronically signed by: Brenda Preciado MD 07/30/2024 08:32 PM EDT Dictated By: Brenda Preciado MD Signed By: <Electronically signed by Brenda Preciado MD in OV> 07/30/242031 DD/ 1345 TD/TT: 07/06/24 1407 Drapery Examiner: Jamie Mendez MD IM BI PROCEDURES Edited Result - Final * HIV-1/2 Antigen and Antibodies, Fourth Generation, with Reflexes (04/13/2024 9:46 AM EDT) HIV AB/AG Nonreactive Nonreactive [facility] Comment:HIV-1 p24 Ag and/or HIV-1/HIV-2 Ab not detected.A test result that is nonreactive does not exclude thepossibility of exposure to or infection with HIV-1 and/orHIV-2. Nonreactive results in this assay for individualswith prior exposure to HIV-1 and/or HIV-2 may be due toantigen and antibody levels that are below the limit ofdetection of this assay.The [facility] HIV Ag/Ab Combo assay result andsupplemental assay results should be interpreted inconjunction with the patient's clinical presentation,history and other laboratory results. If the results areinconsistent with clinical evidence, additional testing issuggested to confirm the result. Blood Venous blood specimen / Unknown 04/13/2024 9:46 AM EDT 04/13/2024 11:19 AM EDT us Echo Walton [facility] BLOOD ORDERABLES Ayana sibley Result [facility] [address] [place] [phone] * Pap with NG,CT,Trich (04/13/2024 8:21 AM EDT) Trichomonas (NAAT) NOT DETECTED NOT DETECTED [facility] Comment:The analytical perfo rmance characteristics of thisassay have been determined by [employer]. Themodifications have not been cleared or approved bythe FDA. This assay has been validated pursuant to theCLIA regulations and is used for clinical purposes.For additional information, please refer tohttp://education.ShopGo.Entefy/faq/Trichomonastma(This link is being provided for information/educational purposes only.)THIS TEST WAS PERFORMED AT:[facility] [place] [phone] ADHIKARI MD CTNG Ref Lab NOT DETECTED NOT DETECTED [facility] NG Ref Lab NOT DETECTED NOT DETECTED [facility] Pap Vial Vaginal structure / Unknown 04/13/2024 8:21 AM EDT 04/14/2024 9:10 AM EDT Echo Walton [facility] CYTOLOGY ORDERABLES F inal Result Performing Organization Address [facility] Co de Phone Number [facility] [address] [place] [address] [phone] * HPV mRNA E6/E7 w/Reflex to HPV Genotypes 16, 18/45 (04/13/2024 8:21 AM EDT) HPV nRNA E6/E7 Not Detected Not Detected [facility] Comment:Methodology: Transcr iption-Mediated AmplificationThis assay detects E6/E7 viral messenger RNA (mRNA) from 14high-risk HPV types (16,18,31,33,35,39,45,51,52,56,58,59,66,68).Cervical sources are required for HPV testing.If a vaginal source from a patient who has had atotal hysterectomy with removal of cervix wassubmitted, please contact the testing laboratoryfor alternative testing options.For additional information, please refer tohttp://education.M2G/faq/JNS471h6(This link if provided for information/educational purposes only.)THIS TEST WAS PERFORMED AT:[facility] [place] [phone] ADHIKARI MD HPV mRNA E6/E7 [facility] HPV [facility] HPV 18/45 RNA [facility] 04/13/2024 8:21 AM EDT 04/14/2024 9:10 AM EDT Echo GIPSON [facility] CYTOLOGY ORDERABLES F inal Result Performing Organization Address [facility]/ZIP Co de Phone Number [facility] [address] [place] [address] [phone] * (ABNORMAL) Lipid Panel, Standard (02/05/2024 9:36 AM EDT) Triglycerides 137 <150 mg/dL [facility] Comment:Desirable Triglyceri de: less than 150 mg/dLBorderline High Triglyceride 150-199 mg/dLHigh Triglyceride: 200-499 mg/dLVery High Triglyceride: greater than or equal to 5OO mg/dL Cholesterol 215(H) <200 mg/dL [facility] Comment:Desirable Cholestero l: less than 200 mg/dLBorderline High Cholesterol: 200-239 mg/dLHigh Cholesterol: greater than 239 mg/dL LDL Cholesterol Calculated 141(H) <100 mg/dL [facility] Comment:Desirable LDL: less than 100 mg/dLNear Optimal/Above Optimal LDL: 110- 129 mg/dLBorderline High LDL: 130-159 mg/dLHigh LDL: 160-189 mg/dLVery High LDL: greater than or equal to 190 mg/dL HDL Cholesterol 47 >40 mg/dL [facility] Comment:Desirable HDL: great er than 40 mg/dL Note: This HDL assay may give artificially low results in patients with liver disease. Blood Venous blood specimen / Unknown 02/05/2024 9:36 AM EDT 02/05/2024 11:16 AM EDT us Jamie Mendez MD LAB BLOOD ORDERABL ES Final Result [facility] [address] [place] [phone] * HEPATITIS C AB W/REFL TO HCV RNA, QN, PCR (04/03/2022 8:04 AM EDT) HEPATITIS C ANTIBODY NON-REACT SIA NON-REACT SIA [facility] INDEX 0.04 <1.00 [facility] Comment: ?? HCV antibody was non-reactive. There is no laboratory ?? evidence of HCV infection. ?? In most cases, no further action is required. However, if recent HCV exposure is suspected, a test for HCV RNA (test code 29483) is suggested. ?? For additional information please refer to http://education.ShopGo.Entefy/faq/UOQ50j3 (This link is being provided for informational/ educational purposes only.) ?? 04/03/2022 8:04 AM EDT Jamie Mendez MD HISTORICAL/NON ORD ERABLE LABS Final Result [facility] [address] * Hm Colonoscopy (01/30/2021 8:36 AM EST) Historical Provider HEALTH MAINTENANCE Final Result from Last 3 Months or Most Recently Relevant to Health Maintenance Insurance [address] [place], [place] [phone] [place] [address] [facility] [place] [facility] [employer] STAND ADULT Care Teams Lcac Operator Relationship Specialty Start Date End Date Jamie Rashid MD [address] [place] [phone] PCP - General Internal Medicine 04/12/20
--- OUTSIDE RECORDS SUMMARY | 2025-04-13 16:43 | XMS_ITS | Encounter Summary ---
Author Organization [employer] Address [address] [place] [address] Care Team Providers Care On Site Construction Superintendent Name Role Phone Jamie Rashid MD Primary Care Prov ider Encounter Details Date Type Department Care Team (Latest Contact Info) Description 06/08/2021 Abstract [facility] CONVERSIONS Dental, Provider, DDS Social History Tobacco Use Types Packs/Day Years Used Date Smoking Tobacco: Never Assessed Comments Unknown Sex and Gender Information Value Date Recorded Sex Assigned at Female 09/24/2022 10:20 AM EDT Legal Sex Female 10:20 AM EDT Gender Identity Female 09/24/2022 10:20 AM EDT Sexual Orientation Straight 09/24/2022 10 :20 AM EDT documented as of this encounter Plan of Treatment Upcoming Encounters Date Type Department Care Team ( st Contact Info) Description 06/29/2025 10:45 AM EDT Office Visit [facility] [address] [place] [address] Jamie Rashid MD [address] [place] [address] 09/09/2025 3:00 PM EDT Office Visit [facility] ADULT DENTAL [address] [place] [address] [place] Marc documented as of this encounter Visit Diagnoses Not on filedocumented in this encounter Care Teams On Site Construction Superintendent Relationship Specialty Start Date End Date Jamie Rashid MD [address] [place] [address] PCP - General Internal Medicine 04/12/20 documented as of this encounter
--- OUTSIDE RECORDS SUMMARY | 2025-04-13 16:43 | XMS_ITS | Encounter Summary ---
Author Organization [employer] Address [address] [place] [address] Care Team Providers Care Business Control Manager Name Role Phone Jamie Rashid MD Primary Care Prov ider Encounter Details Date Type Department Care Team (Latest Contact Info) Description 12/29/2018 Abstract [facility] CONVERSIONS Dental, Provider, DDS Social History [...] 10:45 AM EDT Office Visit [facility] [address] [place] [address] Jamie Rashid MD [address] [place] [address] 09/09/2025 3:00 PM EDT Office Visit [facility] ADULT D[facility] [address] [place] [address] [place] Marc documented as of this encounter Visit Diagnoses Not on filedocumented in this encounter Care Teams Business Control Manager Relationship Specialty Start Date End Date Jamie Rashid MD [address] [place] [address] PCP - General Internal Medicine 04/12/20 documented as of this encounter
--- OUTSIDE RECORDS SUMMARY | 2025-04-13 16:43 | XMS_ITS | Encounter Summary ---
Author Organization [employer] Address [address] [facility] [address] [place] [address] Care Team Providers Care Multifocal Lens Assembler Name Role Phone Jamie Rashid MD Primary Care Prov ider Encounter Details Date Type Department Care Team (Late st Contact Info) Description 04/13/2025 3:45 PM EDT Office Visit [facility] [address] [place], [place] [id number] Echo Walton CN [address] [place] [address] Visit for pelvic exam (Primary Dx); Screening examination for venereal disease Social History Tobacco Use Types Packs/Day Years Used Date Smoking Tobacco: Never Passive Smoke Exposure: Never Smokeless Tobacco: Never Alcohol Use Standard Drinks/Week Comments Yes 5 [...] AM EDT documented as of this encounter Last Filed Vital Signs Vital Sign Reading Time Taken Comments Blood Pressure 146/90 04/13/2025 3:46 PM EDT Pulse 78 04/13/2025 3:46 PM EDT Temperature 36.8 ??C (98.3 ??F) 04/13/2025 3:46 PM ED T Respiratory Rate 18 04/13/2025 3:46 PM EDT Oxygen Saturation - - Inhaled Oxygen Concentration - - Weight 80.2 kg (176 lb 12.8 oz) 04/13/2025 3:46 PM EDT Height 167.6 cm (5' 6 ) 04/13/2025 3:46 PM EDT Body Mass Index 28.54 04/13/2025 3:46 PM EDT documented in this encounter Progress Notes * Echo Walton, ONIEL - 04/13/2025 3:45 PM EDT Subjective Patient ID: Art Miles is a 54 y.o. female who presents for [place] visit Pap NIL/HPV neg 03/2024. Pap NIL/HPV neg 05/2019. Mammogram BIRADS 2, cat b 06/2024. HSV 1/2 IgG pos, asymptomatic. AMAB partner x 8 months. [place]. Last sexually active about a month ago. Consideringending relationship, no concerns for physical safety but wonders if he has outside partners. Would like STI testing today. Asymptomatic. Last sexually active about a month ago. Gonorrhea/Chlamydia/trichomonas, HIV, syphilis and Hep C neg 2023. Completed HBV series recently. Lives with grandchildren, feels safe at home. Menopausal at 49, no bleeding since then. Vasomotor symptoms symptoms manageable. Had bladder suspension and breast lift in the [place]. Happy with results. No personal fracture, no parental hip fracture. Would like pelvic exam today, declines breast exam. Review of Systems Genitourinary: Negative for dyspareunia, dysuria, frequency, genital sores, hematuria, menstrual problem, pelvic pain, urgency, vaginal bleeding, vaginal discharge and vaginal pain. No abnormal pap, no abnormal bleeding, no breast pain, no breast mass, no nipple discharge Objective BP (!) 146/90 (BP Location: Left arm, Patient Position: Sitting, BP Cuff Size: Large adult) Pulse78 Temp 98.3 ??F (36.8 ??C) (Oral) Resp 18 Ht 5' 6 (1.676 m) Wt 176 lb 12.8 oz (80.2 kg) BMI 28.54 kg/m?? Physical Exam Constitutional: Appearance: Normal appearance. Genitourinary: General: Normal vulva. Labia: Right: No rash, tenderness, lesion or injury. Left: No rash, tenderness, lesion or injury. Vagina: Normal. No signs of injury and foreign body. No vaginal discharge, erythema, tenderness, bleeding or lesions. Cervix: No cervical motion tenderness, discharge, friability, lesion, erythema, cervical bleeding or eversion. Uterus: Normal. Not enlarged and not tender. Adnexa: Right adnexa normal and left adnexa normal. Right: No mass, tenderness or fullness. Left: No mass, tenderness or fullness. Comments: Ovaries non palpable bilaterally. Good tone with Kegels, no prolapse with Valsalva Neurological: Mental Status: She is alert. Psychiatric: Mood and Affect: Mood normal. Behavior: Behavior normal. Assessment/Plan Diagnoses and all orders for this visit: Visit for pelvic exam Cotest 2028. Routine mammography 06/2025. Report bleeding. BMD at 65, sooner if new risk factors. Screening examination for venereal disease - Chlamydia/N. Gonorrhoeae RNA, TMA, Vagina - HIV-1/2 Antigen and Antibodies, Fourth Generation, with Reflexes; Future - Syphilis Screen; Future - Trichomonas RNA (Urine/Vaginal) Gonorrhea/Chlamydia/trichomonas and serum labs today. Will contact with results. documented in this encounter Plan of Treatment Upcoming Encounters Date Type Department Care Team (Late st Contact Info) Description 06/29/2025 10:45 AM EDT Office Visit [facility] [address] [place] [address] Jamie Rashid MD [address] [place] [address] 09/09/2025 3:00 PM EDT Office Visit [facility] [address] [place] [address] Argentina Marc Scheduled Orders Name Type Priority Associated Diagnoses Orde r Schedule Chlamydia/N. Gonorrhoeae RNA, TMA, Vagina Microbiology Routine Screening examination for venereal disease Ordered: 04/13/2025 HIV-1/2 Antigen and Antibodies, Fourth Generation, with Reflexes Lab Routine Screening examination for venereal disease Expected: 04/13/2025 (Approximate), Expires: 04/13/2026 Syphilis Screen Lab Routine Screening examination for venereal disease Expected: 04/13/2025 (Approximate), Expires: 04/13/2026 Trichomonas RNA (Urine/Vaginal) Lab Routine Screening examination for venereal disease Ordered: 04/13/2025 documented as of this encounter Visit Diagnoses Diagnosis Visit for pelvic exam- Primary Screening examination for venereal disease documented in this encounter Additional Health Concerns Assessment Noted Time PHQ-9 Depression Total Score: 1 02/04/20 24 9:50 AM EDT documented as of this encounter Care Teams Multifocal Lens Assembler Relationship Specialty Start Date End Date Jamie Rashid MD [address] [place] [address] PCP - General Internal Medicine 04/12/20 documented as of this encounter
--- OUTSIDE RECORDS SUMMARY | 2025-04-13 16:43 | XMS_ITS | Encounter Summary ---
Author Organization [employer] Address [address] [facility] [address] [place] [address] Care Team Providers Care Grounds Maintenance Manager Name Role Phone Jamie Rashid MD Primary Care Prov ider Encounter Details Date Type Department Care Team (Late st Contact Info) Description 03/12/2024 Orders Only [facility] [address] [place] [address] Provider, MD Felicia Social History Tobacco Use Types Packs/Day Years [...] Patient Health Questionnaire-2 Score 0 02/04/2024 Comments Unknown Sex and Gender Information Value [...] Description 06/29/2025 10:45 AM EDT Office Visit [facility] [address] [place] [address] Jamie Rashid MD [address] [place] [address] 09/09/2025 3:00 PM EDT Office Visit [facility] AD[facility] D[facility] [address] [place] [address] Argentina Marc documented as of this encounter Procedures Procedure Name Priority Date/Time Associated Diagnosis Comments HM COLONOSCOPY Routine 01/30/2021 8:36 AM EST documented in this encounter Results * Hm Colonoscopy (01/30/2021 8:36 AM EST) Historical Provider HEALTH MAINTENANCE Final Result documented in this encounter Visit Diagnoses Not on filedocumented in this encounter Additional Health Concerns Assessment Noted Time PHQ-9 Depression Total Score: 1 02/04/20 24 9:50 AM EDT documented as of this encounter Care Teams Grounds Maintenance Manager Relationship Specialty Start Date End Date Jamie Rashid MD [address] [place] [address] PCP - General Internal Medicine 04/12/20 documented as of this encounter
--- OUTSIDE RECORDS SUMMARY | 2025-04-13 16:43 | XMS_ITS | Encounter Summary ---
Author Organization [employer] Address [address] [place] [address] Care Team Providers Care Loaf Counter Name Role Phone Jamie Rashid MD Primary Care Prov ider Encounter Details Date Type Department Care Team (Latest Contact Info) Description 08/08/2022 Abstract [facility] CONVERSIONS Dental, Provider, DDS Social History Tobacco [...] Description 06/29/2025 10:45 AM EDT Office Visit [facility] [address] [place] [address] Jamie Rashid MD [address] [place] [address] 09/09/2025 3:00 PM EDT Office Visit [facility] ADULT DENT[facility] [address] [place] [address] Argentina Marc documented as of this encounter Visit Diagnoses Not on filedocumented in this encounter Care Teams Loaf Counter Relationship Specialty Start Date End Date Jamie Rashid MD [address] [place] [address] PCP - General Internal Medicine 04/12/20 documented as of this encounter
--- OUTSIDE RECORDS SUMMARY | 2025-04-13 16:43 | XMS_ITS | Patient Health Record ---
Author Organization [facility] Address [address] [place] [id number] Care Team Providers Care Wrister Name Role Phone Nasir webster, Jamie Primary Care Prov ider Unavailable Evangelista Pineda Unavailable [phone] Reason For Referral No Information Medications Medication SIG (Take, Route, Frequency, Duration) Notes Start Date End Date Status Vitamin B12 Active Dulcolax (colon prep) 5 MG take at 3:00 p.m and 7:00p.m. Orally two tablets twice a day for one day for 1 day 01/03/2021 Active Vitamin D3 as directed Orally O nce a day Active MiraLax (colon prep) 8.3 ounce ((238) grams mixed with gatorade or crystal light orally begin at 5:00 p.m. the day before the procedure for 1 day 01/03/2021 Active Immunizations Vaccine Route Administration Date Status Comme nts Influenza Unknown 08/25/2020 Administered Social History Tobacco Use: Social History Observation Description Date Details (start date - stop date) Current Smoker NA - NA Tobacco Use/Smoking Question Answer Notes Patient is a current smoker How often do you smoke cigarettes? every day How many cigarettes a day do you smoke? 5 or les s Alcohol Screen Question Answer Notes Did you have a drink contain ing alcohol in the past year? Yes How often did you have a dri nk containing alcohol in the past year? 2 to 3 times a week (3 points) How many drinks did you have on a typical day when you were drinking in the past year? 1 or 2 drinks (0 point) How often did you have 6 or more drinks on one occasion in the past year? Never (0 point) Points 3 Interpretation Positive Section Notes: Nonsmoker; no sig. alcohol Smoker; some beers on the we ekend Problems Problem Type SNOMED Code ICD Code Onset Dates Problem Status W/U Status Risk Notes Problem Encounter for screening for malignant neoplasm of colon (Z12.11) Active confirmed Problem 434057058 Abdominal bloating (R14.0) Active confirmed Problem Preprocedural examination (285277251059774) Preprocedural examination (Z01.818) Active confirmed Problem 791506014 Gas (R14.3) Active confirmed Plan Of Treatment Future Test Test Name Order Date COLONOSCOPY 01/03/2021 Insurance Providers Payer Name Payer Address Payer Phone Subscriber Number Group Number Insured Name Patient Relationship to Insured Coverage Start Date Coverage End Date [facility] [address] [address] [place], [place] [id number] ABRAHAM KWAN Self - patient is the insured Medical (General) History Medical History History ICD Code Denies [place],DM,CVA,Lung disease,renal dise ase Negative abdominal ultrasound in 2016 Surgical History Surgery Date(Month/Year) BTL Bladder suspension Rafiq poon
--- OUTSIDE RECORDS SUMMARY | 2025-04-13 16:43 | XMS_ITS | Encounter Summary ---
Author Organization [employer] Address [address] [facility] [address] [place] [address] Care Team Providers Care Chief Arson Division Name Role Phone Jamie Rashid MD Primary Care Prov ider Encounter Details Date Type Department Care Team (Latest Contact Info) Description 04/13/2025 Travel Social History Tobacco Use Types Packs/Day Years [...] Description 06/29/2025 10:45 AM EDT Office Visit [facility] [address] [place] [address] Jamie Rashid MD [address] [place] [address] 09/09/2025 3:00 PM EDT Office Visit [facility] [address] [place] [address] Argentina Marc documented as of this encounter Visit Diagnoses Not on filedocumented in this encounter Additional Health Concerns Assessment Noted Time PHQ-9 Depression Total Score: 1 02/04/20 24 9:50 AM EDT documented as of this encounter Care Teams Chief Arson Division Relationship Specialty Start Date End Date Jamie Rashid MD [address] [place] [address] PCP - General Internal Medicine 04/12/20 documented as of this encounter
[2025-04-14 03:32] LABS: Syphilis Screen Nonreactive (Nonreactive)
[2025-04-14 03:57] LABS: HIV AB/AG Nonreactive (Nonreactive); HIV Num 1 0.07 S/CO (0.00-0.99)
[2025-04-14 06:17] LABS: CT PCR NOT DETECTED (Not Detect.); NG PCR NOT DETECTED (Not Detect.)
[2025-04-14 22:17] LABS: Trichomonas vaginalis RNA NOT DETECTED (NOT DETECTED)
== END 2025-04-13 16:05 | disposition home or self-care (01) ==
LOC: HO.HHCL 16:04
PROVIDERS: Visit Provider Advanced Practice Midwife
DX: Z11.3 Encounter for screening for infections with a predominantly sexual mode of transmission (principal)
CPT/HCPCS: 36415; 86780; 87389; 87491; 87591; 87661

== ENCOUNTER 2025-06-29 11:21 | Outpatient (REF) | payer MEDICAID, SELFPAY ==
--- OUTSIDE RECORDS SUMMARY | 2025-06-29 12:08 | XMS_ITS | Clinical Summary ---
Author Organization [employer] Address [address] [facility] [address] [place] [address] Care Team Providers Care Sound Engineer Name Role Phone Jamie Rashid MD Primary Care Prov ider Allergies No known active allergies Medications Blood Pressure kitIndications:P rimary hypertension 1 kit Once per day. 1 kit 09/08/20 24 Active losartan (Cozaar) 25 MG tablet Take 1 tablet (25 mg) by mouth Once per day. 90 tablet 3 11/12/20 24 025 Active hydroCHLOROthiaz maría (HYDRODiuril) 25 MG tabletIndication s:Primary hypertension Take 1 tablet (25 mg) by mouth Once per day. 90 tablet 3 11/12/20 24 025 Active capsaicin (Capzasin-HP) 0.1 % cream Apply topically 2 times daily. 07/27/20 21 025 Discontinued triamcinolone (Kenalog) 0.5 % cream Apply topically every 12 (twelve) hours. 08/09/20 21 025 Discontinued zoster vaccine-recombin ant adjuvanted (Shingrix) 50 MCG/0.5ML vaccine Inject 0.5 mL into the shoulder, thigh, or buttocks. 03/29/20 22 025 Discontinued Active Problems Problem Noted Date Diagnosed Date Primary hypertension 06/09/2024 Assessment & Plan (06/29/2025 11:59 AM EDT): Slightly elevated, refers at home remains below 140/90, told to keep low sodium diet, bring bp log for next appointment, new labs ordered Assessment & Plan (11/12/2024 10:44 AM EST): [...] 1:40 PM EDT): Patient here at our [facility] with c/o palpitation and elevated blood pressure [...] discuss treatment, keep low sodium diet and access rn as tolerated Annual physical exam 06/09/2024 Assessment & Plan (06/09/2024 8:24 AM EDT): Found with bp elevated, told to keep low sodium diet, bp kit will be sent Pending colonoscopy results will follow up Pending pap smear Encounters Date Type Department Care Team Description 06/29/2025 10:45 AM EDT Office Visit [facility] [address], [place] [phone] Jamie Rashid MD Primary hypertension (Primary Dx) 06/29/2025 Travel 06/22/2025 Patient Outreach [facility] [address] [place] [address] Jamie Rashid MD Pre-visit Planning (SDOH screening negative and Tobacco screening negative) 05/03/2025 Refill [facility] [address] [place] [address] Fredi Chiu MD Primary hypertension 04/15/2025 Results Follow-Up [facility] [address] [place] [phone] Echo Walton CNM Chlamydia/N. Gonorrhoeae RNA, TMA, Vagina, Trichomonas RNA (Urine/Vaginal), HIV-1/2 Antigen and Antibodies, Fourth Generation, with Reflexes, Syphilis Screen 04/13/2025 3:45 PM EDT Office Visit [facility] [address] [place] [address] Echo Walton CNM Visit for pelvic exam (Primary Dx); Screening examination for venereal disease 04/13/2025 Travel from Last 3 Months Immunizations Immunization Administration [...] Answer Date Recorded Patient Health Questionnaire-9 Score 0 06/29/2025 Patient Health Questionnaire-9 Score 0 06/29/2025 Last PHQ-9: Questionnaire Data Not on file 0 06/29/2025 Housing Stability Answer Date Recorded What is your housing situation today? I have masood sing 06/22/[address] you li ve. Do you have problems with any of the following? None of the above 06/22/2025 Food Insecurity Answer Date Recorded Within the past 12 months, y ou worried that your food would run out before you got money to buy more: Never True 06/22/2025 Within the past 12 months,th e food you bought just didn't last and you didn't have enough money to get more: Never True Transportation Answer Date Recorded In the past 12 months, has l ack of transportation kept you from medical appts, meetings, work or from getting things needed for daily living? No 06/22/2025 Utilities Answer Date Recorded In the past 12 months, has t he electric, gas, oil or water company threatened to shut off services in your home? No 06/22/2025 Depression Answer Date Recorded Patient Health Questionnaire-2 Score 0 06/29/2025 Internet Access Answer Date Recorded Internet Access Q1 Yes 06/22/2025 Internet Access Q2 Not on file 06/22/2025 Comments No Sex and Gender Information Value Date Recorded Sex Assigned at Female 09/24/2022 10:20 AM EDT Legal Sex Female 10:20 AM EDT Gender Identity Female 09/24/2022 10:20 AM EDT Sexual Orientation Straight 09/24/2022 10 :20 AM EDT Last Filed Vital Signs Vital Sign Reading Time Taken Comments Blood Pressure 148/83 06/29/2025 10:55 AM EDT Pulse 68 06/29/2025 10:55 AM EDT Temperature 36.4 C (97.5 F) 06/29/2025 10:55 AM EDT Respiratory Rate 16 06/29/2025 10:55 AM EDT Oxygen Saturation 97% 09/08/2024 12:28 PM EDT room air Inhaled Oxygen Concentration - - Weight 82.6 kg (182 lb) 06/29/2025 10:55 AM EDT Height 167.6 cm (5' 6 ) 06/29/2025 10:55 AM EDT Body Mass Index 29.38 06/29/2025 10:55 AM EDT Plan of Treatment Upcoming Encounters Date Type Department Care Team (Late st Contact Info) Description 09/09/2025 3:00 PM EDT Office Visit [facility] [address] [place] [address] [place] Marc Health Maintenance Due Date Last Done Comments CT Colonography 1970 FIT DNA/Cologuard 1970 FIT 1970 FOBT 1970 Sigmoidoscopy 1970 Disability Screening 1970 Pneumococcal Vaccine: 50+ Years (1 of 1 - PCV) 2020 COVID-19 Vaccine (4 - season) 2024 04/10/2022, 01/26/2021, 12/29/2020 Influenza Vaccine (#1) 2025 , 09/02/2018, 09/10/2017, Additional history exists Dental Oral Exam 09/08/2025 03/08/2025, 10/2024, 08/08/2022, Additional history exists Dental Prophylaxis 09/08/2025 03/08/2025, 0 03/06/2024, 05/02/2023, Additional history exists Tobacco Screening 03/08/2026 03/08/2025 Dental X-Ray: Bitewings 03/09/2026 03/08/20, 03/06/2024, 02/14/2024, Additional history exists SDOH Screening 06/22/2026 06/22/2025 Alcohol/Substance Use Screening 06/29/2026 06/29/2025 Depression Screening 06/29/2026 06/29/2025, 06/29/20 Mammogram 07/06/2026 07/06/2024, 08/0 07/2023, 06/25/2022, Additional history exists DTaP/Tdap/Td Vaccines (2 - Td or Tdap) 11/16/2026 11/16/2016 Dental X-Ray: Full Mouth 03/07/2027 03/06/2024, 100 03/2011 Lipid Panel 02/04/2029 02/05/2024, 05, 10/04/2020 Cervical Cancer Screening 04/13/2029 HPV/Cotest 04/13/2029 04/13/2024, 05/26/2019 Pap Smear 04/13/2029 04/13/2024, 04/13/2024 Colonoscopy 01/30/2031 01/30/2021 Colorectal Cancer Screening 01/30/2031 RSV Patients and Patients Aged 60 years or older (1 - 1-dose 75+ series) 2045 Hepatitis C Screening Completed 04/03/2022 Zoster Vaccines Completed 08/06/2022, 03/29/2022 Hepatitis B Vaccines Completed 03/09/2025, 06/17/2024, 05/14/2024 HIV Screening Completed 04/13/2025, 03/26, 04/13/2022 HIB Vaccines Aged Out No longer eligi [...] Procedure Name Priority Date/Time Associated Diagnosis Comments SYPHILIS SCREEN Routine 04/13/2025 4:06 PM EDT Screening examination for venereal disease HIV 1/2 ANTIGEN/ANTIBODY, FOURTH GENERATION W/RFL Routine 04/13/2025 4:06 PM EDT Screening examination for venereal disease TRICHOMONAS VAGINALIS RNA, QUALITATIVE, TMA Routine 04/13/2025 4:05 PM EDT Screening examination for venereal disease CHLAMYDIA/N. GONORRHOEAE RNA, TMA, UROGENITAL Routine 04/13/2025 4:05 PM EDT Screening examination for venereal disease PROPHYLAXIS - ADULT Routine 03/08/2025 1 1:00 AM EDT Dental caries BITEWINGS - 4 RADIOGRAPHIC IMAGES Routine 03/08/2025 11:00 AM EDT Dental caries PERIODIC ORAL EVALUATION - ESTABLISHED PATIENT Routine 03/08/2025 11:00 AM EDT Dental caries BI MAMMOGRAM SCREENING TOMOSYNTHESIS BILATERAL Routine 07/06/2024 1:45 PM EDT HPV MRNA E6/E7 REFLEX TO HPV 16, [...] (BMI) of 31.0 to 31.9 in adult [facility] HISTORICAL HEPATITIS C AB W/REFL TO HCV RNA, QN, PCR Routine 04/03/2022 8:04 AM EDT HM COLONOSCOPY Routine 01/30/2021 8:36 AM EST from Last 3 Months or Most Recently Relevant to Health Maintenance Results * Syphilis Screen (04/13/2025 4:06 PM EDT) Pathologist [facility] Syphilis Screen Nonreactive Nonreactive [facility] Blood Venous blood specimen / Unknown 04/13/2025 4:06 PM EDT 04/13/2025 6:03 PM EDT us Echo GIPSON LAB BLOOD ORDERABLES Ayana l Result [facility] [address] [place] [phone] [phone] * HIV-1/2 Antigen and Antibodies, Fourth Generation, with Reflexes (04/13/2025 4:06 PM EDT) HIV AB/AG Nonreactive Nonreactive [facility] Comment:HIV-1 p24 Ag and/or HIV-1/HIV-2 Ab not detected.A test result that is nonreactive does not exclude thepossibility of exposure to or infection with HIV-1 and/orHIV-2. Nonreactive results in this assay for individualswith prior exposure to HIV-1 and/or HIV-2 may be due toantigen and antibody levels that are below the limit ofdetection of this assay.The [employer] HIV Ag/Ab Combo assay result andsupplemental assay results should be interpreted inconjunction with the patient's clinical presentation,history and other laboratory results. If the results areinconsistent with clinical evidence, additional testing issuggested to confirm the result. Blood Venous blood specimen / Unknown 04/13/2025 4:06 PM EDT 04/13/2025 6:03 PM EDT Echo Walton [facility] LAB BLOOD ORDERABLES Ayana l Result Performing Organization Address [facility] Co de Phone Number [facility] [address] [place] [phone] * Trichomonas RNA (Urine/Vaginal) (04/13/2025 4:05 PM EDT) Trichomas vaginalis RNA, QL, TMA NOT DETECTED NOT DETECTED [facility] Comment:For additional infor isra, please refer tohttp://education.Mediamind/faq/Trichomonastma(This link is being provided for informational/educational purposes only.)THIS TEST WAS PERFORMED AT:[facility] [place] [id number] ADHIKARI MD Swab 04/13/2025 4:05 PM EDT 04/13/2025 6:34 PM EDT [facility] BODY FLUIDS AND STOOL S ORDERABLES Final Result Performing Organization Address [facility]/ZIP Co de Phone Number [facility] [address] [place] [phone] * Chlamydia/N. Gonorrhoeae RNA, TMA, Vagina (04/13/2025 4:05 PM EDT) CT PCR NOT DETECTED Not Detect. [facility] Comment:A not detected test result does not exclude the possibilityof infection because test results can be affected byimproper specimen collection, concurrent antibiotic therapy,or the number of organisms in the specimen which may bebelow the sensitivity of the test. As with many diagnostictests, results from the Xpert CT/NG assay should beinterpreted in conjunction with other laboratory andclinical data available to the clinician.Xpert CT/NG performance has not been evaluated in patientsless than 14 years of age. The assay should not be used forthe evaluationof suspected sexual abuse or for other medico-legalindications. Additional testing is recommended in anycircumstance when false positive or false negative resultscould lead to adverse medical, social or psychologicalconsequences. NG PCR NOT DETECTED Not Detect. [facility] Comment:A not detected test result does not exclude the possibilityof infection because test results can be affected byimproper specimen collection, concurrent antibiotic therapy,or the number of organisms in the specimen which may bebelow the sensitivity of the test. As with many diagnostictests, results from the Xpert CT/NG assay should beinterpreted in conjunction with other laboratory andclinical data available to the clinician.Xpert CT/NG performance has not been evaluated in patientsless than 14 years of age. The assay should not be used forthe evaluationof suspected sexual abuse or for other medico-legalindications. Additional testing is recommended in anycircumstance when false positive or false negative resultscould lead to adverse medical, social or psychologicalconsequences. Swab Vaginal structure / Unknown 04/13/2025 4:05 PM EDT 04/13/2025 6:34 PM EDT Narrative [facility] - 04/14/2025 6:17 AM EDT Vaginal us Echo Walton CNM LAB MICROBIOLOGY - GENERA L ORDERABLES Final Result [facility] [address] [place] [phone] * BI Mammogram Screening Tomosynthesis Bilateral (07/06/2024 1:45 PM EDT) Anatomical Region Laterality Modality Breast Bilateral Mammography 07/06/2024 1:45 PM EDT Narrative 07/30/2024 8:35 PM EDT [facility] [address] [place], [place] [address] Mammography Report Signed Patient: Art Miles MR#: [id number] : 1970 Acct:[id number] Age/Sex: 53 / F ADM Date: 07/06/24 Loc: HO.MAMMO Attending Dr: Jamie Mendez MD Ordering Physician: Jamie Rashid MD Res ults: 2Benign Findings Date of Service: 07/06/24 Follow Up: 1 Year From [facility] Mammogram Procedure(s): MM tomosynthesis screening BI Accession Number(s): [id number] cc: Jamie Rashid MD EXAMINATION: MM SCREENING [...] OV> 07/30/242031 DD/ 1345 TD/TT: 07/06/24 1407 Traveling Freight Agent: Procedure Note Donotuseinterpreter, Image - [facility] [address] [place] [address] Mammography Report Signed Patient: Severino MilesR#: [id number] : 1970Acct:[id number] Age/Sex: 53 / FADM Date: 07/06/24 Loc: HO.MAMMO Attending Dr: Jamie Mendez MD Ordering Physician: Jamie Rashid ults: 2Benign Findings Date of Service: 07/06/24Follow Up: 1 Year From Orig in[facility] Mammogram Procedure(s): MM tomosynthesis screening BI Accession Number(s): [id number] cc: Jamie Rashid MD EXAMINATION: MM SCREENING [...] OV> 07/30/242031 DD/ 1345 TD/TT: 07/06/24 1407 Traveling Freight Agent: us Jamie Mendez MD IMG BI PROCEDURES Edited Result - Final * Pap with NG,CT,Trich (04/13/2024 8:21 AM EDT) Trichomonas (NAAT) NOT DETECTED NOT DETECTED [facility] Comment:The analytical perfo rmance characteristics of thisassay have been determined by [employer]. Themodifications have not been cleared or approved bythe FDA. This assay has been validated pursuant to theCLIA regulations and is used for clinical purposes.For additional information, please refer tohttp://education.Mediamind/faq/Trichomonastma(This link is being provided for information/educational purposes only.)THIS TEST WAS PERFORMED AT:[facility] [place] [phone] ADHIKARI MD CTNG Ref Lab NOT DETECTED NOT DETECTED [facility] NG Ref Lab NOT DETECTED NOT DETECTED [facility] Pap Vial Vaginal structure / Unknown 04/13/2024 8:21 AM EDT 04/14/2024 9:10 AM EDT us Echo Walton CN LAB CYTOLOGY ORDERABLES F inal Result [facility] [address] [place] [phone] * HPV mRNA E6/E7 w/Reflex to HPV Genotypes 16, 18/45 (04/13/2024 8:21 AM EDT) HPV nRNA E6/E7 Not Detected Not Detected [facility] Comment:Methodology: Transcr iption-Mediated AmplificationThis assay detects E6/E7 viral messenger RNA (mRNA) from 14high-risk HPV types (16,18,31,33,35,39,45,51,52,56,58,59,66,68).Cervical sources are required for HPV testing.If a vaginal source from a patient who has had atotal hysterectomy with removal of cervix wassubmitted, please contact the testing laboratoryfor alternative testing options.For additional information, please refer tohttp://education.Mediamind/faq/KRI911w1(This link if provided for information/educational purposes only.)THIS TEST WAS PERFORMED AT:[facility] [place] [phone] ADHIKARI MD HPV mRNA E6/E7 [facility] HPV 16 RNA [facility] HPV 18/45 RNA [facility] 04/13/2024 8:21 AM EDT 04/14/2024 9:10 AM EDT us Echo Walton [facility] CYTOLOGY ORDERABLES F inal Result [facility] [address] [place] [phone] * (ABNORMAL) Lipid Panel, Standard (02/05/2024 9:36 AM EDT) Triglycerides 137 <150 mg/dL [facility] Comment:Desirable Triglyceri de: less than 150 mg/dLBorderline High Triglyceride 150-199 mg/dLHigh Triglyceride: 200-499 mg/dLVery High Triglyceride: greater than or equal to 5OO mg/dL Cholesterol 215(H) <200 mg/dL [facility] Comment:Desirable Cholestero l: less than 200 mg/dLBorderline High Cholesterol: 200-239 mg/dLHigh Cholesterol: greater than 239 mg/dL LDL Cholesterol Calculated 141(H) <100 mg/dL [facility] Comment:Desirable LDL: less than 100 mg/dLNear Optimal/Above Optimal LDL: 110- 129 mg/dLBorderline High LDL: 130-159 mg/dLHigh LDL: 160-189 mg/dLVery High LDL: greater than or equal to 190 mg/dL HDL Cholesterol 47 >40 mg/dL [facility] Comment:Desirable HDL: great er than 40 mg/dL Note: This HDL assay may give artificially low results in patients with liver disease. Blood Venous blood specimen / Unknown 02/05/2024 9:36 AM EDT 02/05/2024 11:16 AM EDT Jamie Mendez MD LAB BLOOD ORDERABL ES Final Result Performing Organization Address [facility] Co de Phone Number [facility] [address] [place] [phone] [phone] * HEPATITIS C AB W/REFL TO HCV RNA, QN, PCR (04/03/2022 8:04 AM EDT) HEPATITIS C ANTIBODY NON-REACT SIA NON-REACT SIA [facility] INDEX 0.04 <1.00 [facility] Comment: HCV antibody was non-reactive. There is no laboratory evidence of HCV infection. In most cases, no further action is required. However, if recent HCV exposure is suspected, a test for HCV RNA (test code 89634) is suggested. For additional information please refer to http://education.[employer].iDoneThis/faq/TXU59a2 (This link is being provided for informational/ educational purposes only.) 04/03/2022 8:04 AM EDT Jamie Mendez MD HISTORICAL/NON ORD ERABLE LABS Final Result Performing Organization Address [facility] Co de Phone Number [facility] [address] * Hm Colonoscopy (01/30/2021 8:36 AM EST) Felicia Provider HEALTH MAINTENANCE Final Result from Last 3 Months or Most Recently Relevant to Health Maintenance Insurance [facility] C3 [place] [facility] [place] [facility] STAND ADULT Care Teams Sound Engineer Relationship Specialty Start Date End Date Jamie Rashid MD [address] [place] [phone] PCP - General Internal Medicine 04/12/20
--- OUTSIDE RECORDS SUMMARY | 2025-06-29 12:08 | XMS_ITS | Patient Health Record ---
Author Organization [facility] Address [address] [place] [phone] Care Team Providers Care Quality Assurance Coach Name Role Phone Nasir webster, Jamie Primary Care Prov ider Unavailable Evangelista Pineda Unavailable [phone] Reason For Referral No Information Medications Medication [...] Problem Status W/U Status Risk Notes Problem Screening for malignant neoplasm of colon (990821303) Encounter for screening for malignant neoplasm of colon (Z12.11) Active confirmed Problem 522799978 Abdominal bloating (R14.0) Active confirmed Problem Preprocedural examination (929296628620410) Preprocedural examination (Z01.818) Active confirmed Problem 309978658 Gas (R14.3) Active confirmed Plan Of Treatment Future Test Test Name Order Date COLONOSCOPY 01/03/2021 Insurance Providers Payer Name Payer Address Payer Phone Subscriber Number Group Number Insured Name Patient Relationship to Insured Coverage Start Date Coverage End Date [facility] [address] [address] [place], [place] [id number] ABRAHAM KWAN Self - patient is the insured Medical (General) History Medical History History ICD Code Denies MS,DM,CVA,Lung disease,renal dise ase Negative abdominal ultrasound in 2016 Surgical History Surgery Date(Month/Year) BTL Bladder suspension Rafiq poon
[2025-06-29 14:19] LABS: MANUAL DIFF FLAG NO
[2025-06-29 14:29] LABS: Hematocrit 42.0 % (37.0-47.0); Hemoglobin 13.8 g/dl (12.0-16.0); Imm Gran Abs Auto 0.02 X10*3/uL (0.00-0.03); Imm Gran Pct Auto 0.3 % (0.0-0.4); Lymphocytes Absolute Auto 1.8 X10*3/uL (1.2-4.9); Mean Corpuscular HGB Conc 32.9 g/dl (31.0-35.0); Mean Corpuscular Hemoglobin 30.6 pg (27.0-33.0); Mean Corpuscular Volume 93.1 fL (80.0-98.0); NRBC Abs Auto 0.000 X10*3/uL (0.0-0.012); NRBC Pct Auto 0.0 /100WBC (0.0-0.2); Platelet Count 207 X10*3/uL (160-400); Red Blood Count 4.51 X10*6/uL (4.20-5.50); White Blood Count 7.1 X10*3/uL (4.8-10.8)
[2025-06-29 14:58] LABS: Alanine Aminotransferase 23 U/L (0-31); Albumin Level 4.4 g/dL (3.5-5.0); Alkaline Phosphatase 57 U/L (39-117); Anion Gap 11 (12-20); Aspartate Amino Transferase 28 U/L (5-31); Blood Urea Nitrogen 19 mg/dL (9-16); Calcium 9.0 mg/dL (8.4-10.2); Carbon Dioxide 26 mmol/L (22-29); Chloride 105 mmol/L (96-108); Cholesterol 284 mg/dL (<200); Estimated Glomerular Filt Rate > 60; HDL Cholesterol 68 mg/dL (>40); Potassium 3.9 mmol/L (3.3-5.1); Sodium 138 mmol/L (135-145); Total Protein 6.9 g/dL (6.5-8.0); Triglycerides 155 mg/dL (<150)
== END 2025-06-29 11:22 | disposition home or self-care (01) ==
LOC: HO.CHCLDS 11:21
PROVIDERS: Visit Provider Internal Medicine
DX: I10 Essential (primary) hypertension (principal)
CPT/HCPCS: 36415; 80053; 80061; 84443; 85025

== ENCOUNTER 2025-07-07 13:47 | Outpatient (REF) | payer MEDICAID, SELFPAY ==
--- NOTE | ~2025-07-07 | MM_ITS ---
EXAMINATION: MM SCREENING DIGITAL BREAST TOMOSYNTHESIS, BILATERAL CLINICAL INFORMATION: Screening. Asymptomatic. COMPARISON: Comparison made to multiple prior, most recent July 06, 2024, and most remote May 14, 2019. TECHNIQUE: Digital breast tomosynthesis is performed in both the craniocaudal and mediolateral oblique views along with computer-aided detection (CAD). FINDINGS: BREAST COMPOSITION: There are scattered areas of fibroglandular density (ACR BI-RADS breast composition Category b). BILATERAL BREASTS: Status post bilateral reduction mammoplasty. No significant masses, suspicious calcifications or other abnormalities are seen in either breast. MM/MM tomosynthesis screening BI IMPRESSION: BILATERAL BREASTS: Benign, no mammographic evidence of malignancy. Normal interval follow-up is recommended in 12 months. ASSESSMENT: BI-RADS 2 - Benign Findings RECOMMENDATION: Routine annual mammography screening. FOLLOW-UP: 1 year F/U This examination should not preclude the clinical evaluation of a suspicious palpable abnormality. This patient's information was entered into a reminder system with a target due date for their next mammogram. Electronically signed by: Joon Barrientos MD 07/12/2025 08:32 PM EDT
--- OUTSIDE RECORDS SUMMARY | 2025-07-07 14:10 | XMS_ITS | Patient Health Record ---
Author Organization [facility] Address [address] [place] [phone] Care Team Providers Care Urology Surgeon Name Role Phone Nasir webster, Jamie Primary Care Prov ider Unavailable Evangelista Pineda Unavailable [phone] Reason For Referral No Information Medications Medication [...] neoplasm of colon (Z12.11) Active confirmed Problem 733972171 Abdominal bloating (R14.0) Active confirmed Problem Preprocedural examination (827793191797283) Preprocedural examination (Z01.818) Active confirmed Problem 147191267 Gas (R14.3) Active confirmed Plan Of Treatment Future Test Test Name Order Date COLONOSCOPY 01/03/2021 Insurance Providers Payer Name Payer Address Payer Phone Subscriber Number Group Number Insured Name Patient Relationship to Insured Coverage Start Date Coverage End Date [facility] [address] [address] [place], [place] [id number] ABRAHAM KWAN Self - patient is the insured Medical (General) History Medical History History ICD Code Denies [place],DM,CVA,Lung disease,renal dise ase Negative abdominal ultrasound in 2016 Surgical History Surgery Date(Month/Year) BTL Bladder suspension Rafiq poon
--- OUTSIDE RECORDS SUMMARY | 2025-07-07 14:10 | XMS_ITS | Clinical Summary ---
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 Annual physical exam 06/09/2024 Assessment & Plan (06/09/2024 8:24 AM EDT): Found with bp elevated, told to keep low sodium diet, bp kit will be sent Pending colonoscopy results will follow up Pending pap smear Encounters Date Type Department Care Team Description 07/01/2025 Orders Only [facility] [address] [place] [address] Jamie Rashid MD 06/29/2025 10:45 AM EDT Office Visit [facility] [address] [place] [phone] Jamie Rashid MD Primary hypertension (Primary Dx) 06/29/2025 Travel 06/22/2025 Patient Outreach [facility] [address] [place] [address] Jamie Rashid MD Pre-visit Planning (SDOH screening negative and Tobacco screening negative) 05/03/2025 Refill [facility] [address] [place] [address] Fredi Chiu MD Primary hypertension 04/15/2025 Results Follow-Up [facility] [address] [place] [phone] Echo Walton CNM Chlamydia/N. Gonorrhoeae RNA, TMA, Vagina, Trichomonas RNA (Urine/Vaginal), HIV-1/2 Antigen and Antibodies, Fourth Generation, with Reflexes, Syphilis Screen 04/13/2025 3:45 PM EDT Office Visit [facility] [address] [place] [phone] Echo Walton CNM Visit for pelvic exam [...] Description 09/09/2025 3:00 PM EDT Office Visit [facility] [address] [place] [address] [place] Marc Health Maintenance Due Date Last [...] Screening 06/29/2026 06/29/2025, 06/29/20 Mammogram 07/06/2026 07/06/2024, 0807/2023, 06/25/2022, Additional history exists DTaP/Tdap/Td Vaccines (2 - Td or Tdap) 11/16/2026 11/16/2016 Dental X-Ray: Full Mouth 03/07/2027 03/06/2024, 03/2011 Cervical Cancer Screening 04/13/2029 HPV/Cotest 04/13/2029 04/13/2024, 05/26/2019 Pap Smear 04/13/2029 04/13/2024, 04/13/2024 Lipid Panel 06/29/2030 06/29/2025, 01/23, 04/03/2022, Additional history exists Colonoscopy 01/30/2031 01/30/2021 Colorectal Cancer Screening 01/30/2031 [...] Procedure Name Priority Date/Time Associated Diagnosis Comments TSH W/REFLEX TO FT4 Routine 06/29/2025 1 1:22 AM EDT Primary hypertension LIPID PANEL, STANDARD Routine 06/29/2025 11:22 AM EDT Primary hypertension COMPREHENSIVE METABOLIC PANEL Routine 06/29/2025 11:22 AM EDT Primary hypertension CBC WITH AUTO DIFFERENTIAL Routine 06/29/2025 11:22 AM EDT Primary hypertension SYPHILIS SCREEN Routine 04/13/2025 4:06 PM EDT [...] RADIOGRAPHIC IMAGES Routine 03/06/2024 8:00 AM EDT ZZZ HISTORICAL HEPATITIS C AB W/REFL TO HCV RNA, QN, PCR Routine 04/03/2022 8:04 AM EDT HM COLONOSCOPY Routine 01/30/2021 8:36 AM EST from Last 3 Months or Most Recently Relevant to Health Maintenance Results * TSH W/Reflex to FT4 (06/29/2025 11:22 AM EDT) TSH reflex Free T4 1.89 0.32 - 4.0 uIU/mL [facility] Blood Venous blood specimen / Unknown 06/29/2025 11:22 AM EDT 06/29/2025 2:13 PM EDT us Jamie Mendez MD LAB BLOOD ORDERABL ES Final Result [facility] [address] [place] [phone] * CBC auto differential (06/29/2025 11:22 AM EDT) White Blood Count 7.1 4.8 - 10.8 X10*3/uL [facility] Red Blood Count 4.51 4.20 - 5.50 X10*6/uL [facility] Hemoglobin 13.8 12.0 - 16.0 g/dl [facility] Hematocrit 42.0 37.0 - 47.0 % [facility] Mean Corpuscular Volume 93.1 80.0 - 98.0 fL [facility] Mean Corpuscular Hemoglobin 30.6 27.0 - 33.0 pg [facility] Mean Corpuscular HGB Conc 32.9 31.0 - 35.0 g/dl [facility] Red Cell Distribution Width 12.7 11.0 - 16.0 % [facility] Platelet Count 207 160 - 400 X10*3/uL [facility] Mean Platelet Volume 12.1 9.4 - 12.3 fL [facility] Neutrophils Percent Auto 64.4 45 - 73 % [facility] Imm Gran Pct Auto 0.3 0.0 - 0.4 % [facility] Lymphocytes Percent Auto 24.6 20 - 40 % [facility] Monocytes Percent Auto 8.1 2 - 11 % [facility] Eosinophils Percent Auto 2.0 0 - 4 % [facility] Basophils Percent Auto 0.6 0 - 2 % [facility] NRBC Pct Auto 0.0 0.0 - 0.2 /100WBC [facility] Neutrophils Absolute Auto 4.6 2.0 - 8.3 x10*3/uL [facility] Imm Gran Abs Auto 0.02 0.00 - 0.03 X10*3/uL [facility] Lymphocytes Absolute Auto 1.8 1.2 - 4.9 X10*3/uL [facility] Monocytes Absolute Auto 0.6 0.1 - 1.2 X10*3/uL [facility] Eosinophils Absolute Auto 0.1 0.0 - 0.4 X10*3/uL [facility] Basophils Absolute Auto 0.0 0.0 - 0.2 X10*3/uL [facility] NRBC Abs Auto 0.000 0.0 - 0.012 X10*3/uL [facility] Blood Venous blood specimen / Unknown 06/29/2025 11:22 AM EDT 06/29/2025 2:13 PM EDT us Jamie Mendez MD LAB BLOOD ORDERABL ES Final Result [facility] [address] [place] [phone] * (ABNORMAL) Lipid Panel, Standard (06/29/2025 11:22 AM EDT) Triglycerides 155(H) <150 mg/dL [facility] Comment:Desirable Triglyceri de: less than 150 mg/dLBorderline High Triglyceride 150-199 mg/dLHigh Triglyceride: 200-499 mg/dLVery High Triglyceride: greater than or equal to 5OO mg/dL Cholesterol 284(H) <200 mg/dL [facility] Comment:Desirable Cholestero l: less than 200 mg/dLBorderline High Cholesterol: 200-239 mg/dLHigh Cholesterol: greater than 239 mg/dL LDL Cholesterol Calculated 185(H) <100 mg/dL [facility] Comment:Desirable LDL: less than 100 mg/dLNear Optimal/Above Optimal LDL: 110- 129 mg/dLBorderline High LDL: 130-159 mg/dLHigh LDL: 160-189 mg/dLVery High LDL: greater than or equal to 190 mg/dL HDL Cholesterol 68 >40 mg/dL [facility] Comment:Desirable HDL: great er than 40 mg/dL Note: This HDL assay may give artificially low results in patients with liver disease. Blood Venous blood specimen / Unknown 06/29/2025 11:22 AM EDT 06/29/2025 2:13 PM EDT us Jamie Mendez MD LAB BLOOD ORDERABL ES Final Result [facility] [address] [place] [phone] * (ABNORMAL) Comprehensive Metabolic Panel (06/29/2025 11:22 AM EDT) Sodium 138 135 - 145 mmol/L [facility] Potassium 3.9 3.3 - 5.1 mmol/L [facility] Chloride 105 96 - 108 mmol/L [facility] Carbon Dioxide 26 22 - 29 mmol/L [facility] Anion Gap 11(L) 12 - 20 [facility] Urea Nitrogen (BUN) 19(H) 9 - 16 mg/dL [facility] Creatinine, Serum 0.60 0.5 - 1.4 mg/dL [facility] Estimated Glomerular Filt Rate >60 [facility] Comment:Chronic Kidney Disea se: Estimated GFR < 60 mL/min/1.81h5Qcacvw Kidney Disease: Estimated GFR < 15 mL/min/1.73m2 Glucose 100 60 - 115 mg/dL [facility] Calcium 9.0 8.4 - 10.2 mg/dL [facility] Bilirubin, Total 1.5(H) 0.0 - 1.0 mg/dL [facility] Comment:Slight Icterus. Aspartate Amino Transferase 28 5 - 31 U/L [facility] Alanine Aminotransferase 23 0 - 31 U/L [facility] Total Protein 6.9 6.5 - 8.0 g/dL [facility] Albumin Level 4.4 3.5 - 5.0 g/dL [facility] Alkaline Phosphatase 57 39 - 117 U/L [facility] Blood Venous blood specimen / Unknown 06/29/2025 11:22 AM EDT 06/29/2025 2:13 PM EDT us Jamie Mendez MD LAB BLOOD ORDERABL ES Final Result Performing Organization Address [facility] Co de Phone Number [facility] [address] [place] [phone] * Syphilis Screen (04/13/2025 4:06 PM EDT) Syphilis Screen Nonreactive Nonreactive [facility] Blood Venous blood specimen / Unknown 04/13/2025 4:06 PM EDT 04/13/2025 6:03 PM EDT Ecoh Walton [facility] LAB BLOOD ORDERABLES Ayana l Result Performing Organization Address [facility] de Phone Number [facility] [address] [place] [phone] * HIV-1/2 Antigen and Antibodies, Fourth Generation, with Reflexes (04/13/2025 4:06 PM EDT) [facility] HIV AB/AG Nonreactive Nonreactive [facility] Comment:HIV-1 p24 Ag and/or HIV-1/HIV-2 Ab not detected.A test result that is nonreactive does not exclude thepossibility of exposure to or infection with HIV-1 and/orHIV-2. Nonreactive results in this assay for individualswith prior exposure to HIV-1 and/or HIV-2 may be due toantigen and antibody levels that are below the limit ofdetection of this assay.The [employer] HIV Ag/Ab Combo assay result andsupplemental assay results should be interpreted inconjunction with the patient's clinical presentation,history and other laboratory results. If the results areinconsistent with clinical evidence, additional testing issuggested to confirm the result. Blood Venous blood specimen / Unknown 04/13/2025 4:06 PM EDT 04/13/2025 6:03 PM EDT Echo Walton [facility] LAB BLOOD ORDERABLES Ayana l Result Performing Organization Address [facility] Co de Phone Number [facility] [address] [place] [phone] * Trichomonas RNA (Urine/Vaginal) (04/13/2025 4:05 PM EDT) Trichomas vaginalis RNA, QL, TMA NOT DETECTED NOT DETECTED [facility] Comment:For additional infor isra, please refer tohttp://education.DocOnYou/faq/Trichomonastma(This link is being provided for informational/educational purposes only.)THIS TEST WAS PERFORMED AT:[facility] [place] [phone] ADHIKARI MD Swab 04/13/2025 4:05 PM EDT 04/13/2025 6:34 PM EDT Echo Walton CNM LAB BODY FLUIDS AND STOOL S ORDERABLES Final Result [facility] [address] [place] [phone] * Chlamydia/N. Gonorrhoeae RNA, TMA, Vagina (04/13/2025 4:05 PM EDT) Pathologist [facility] CT PCR NOT DETECTED Not Detect. [facility] Comment:A not detected test result [...] psychologicalconsequences. NG PCR NOT DETECTED Not Detect. [facility] Comment:A not detected test result [...] PM EDT 04/13/2025 6:34 PM EDT Narrative [facility] - 04/14/2025 6:17 AM EDT Vaginal Echo [facility] MICROBIOLOGY - GENERA L ORDERABLES Final Result [facility] [address] [place] [phone] * BI Mammogram Screening Tomosynthesis Bilateral (07/06/2024 1:45 PM EDT) Anatomical Region Laterality Modality Breast Bilateral Mammography 07/06/2024 1:45 PM EDT Narrative 07/30/2024 8:35 PM EDT [facility] [address] [place] [address] Mammography Report Signed Patient: Art Miles MR#: [id number] : 1970 Acct:[id number] Age/Sex: 53 / F ADM Date: 07/06/24 Loc: HO.MAMMO Attending Dr: Jamie Mendez MD Ordering Physician: Jamie Rashid MD Res ults: 2Benign Findings Date of Service: 07/06/24 Follow Up: 1 Year From Orig inal Mammogram Procedure(s): MM tomosynthesis screening BI Accession Number(s): [id number] cc: Jamie Rashid MD EXAMINATION: MM SCREENING [...] OV> 07/30/242031 DD/ 1345 TD/TT: 07/06/24 1407 Money Market Clerk: Procedure Note Donotuseinterpreter, Image - 07/30/2024 [facility] [address] [place] [address] Mammography Report Signed Patient: Severino MilesR#: [id number] : 1970Acct:[id number] Age/Sex: 53 / FADM Date: 07/06/24 Loc: FIFI Attending Dr: Jamie Mendez MD Ordering Physician: Jamie Rashid ults: 2Benign Findings Date of Service: 07/06/24Follow Up: 1 Year From Orig inal Mammogram Procedure(s): MM tomosynthesis screening BI Accession Number(s): [id number] cc: Jamie Rashid MD EXAMINATION: MM SCREENING [...] OV> 07/30/242031 DD/ 1345 TD/TT: 07/06/24 1407 Money Market Clerk: Jamie Mendez MD [facility] BI PROCEDURES Edited Result - Final * Pap with NG,CT,Trich (04/13/2024 8:21 AM EDT) Trichomonas (NAAT) NOT DETECTED NOT DETECTED [facility] Comment:The analytical perfo rmance characteristics of thisassay have been determined by [facility]. Themodifications have not been cleared or approved bythe FDA. This assay has been validated pursuant to theCLIA regulations and is used for clinical purposes.For additional information, please refer tohttp://education.DocOnYou/faq/Trichomonastma(This link is being provided for information/educational purposes only.)THIS TEST WAS PERFORMED AT:[facility] [place] [phone] ADHIKARI MD CTNG Ref Lab NOT DETECTED NOT DETECTED [facility] NG Ref Lab NOT DETECTED NOT DETECTED [facility] Pap Vial Vaginal structure / Unknown 04/13/2024 8:21 AM EDT 04/14/2024 9:10 AM EDT Echo [facility] CYTOLOGY ORDERABLES F inal Result [facility] [address] [place] [phone] * HPV mRNA E6/E7 w/Reflex to HPV Genotypes 16, 18/45 (04/13/2024 8:21 AM EDT) HPV nRNA E6/E7 Not Detected Not Detected [facility] Comment:Methodology: Transcr iption-Mediated AmplificationThis assay detects E6/E7 viral messenger RNA (mRNA) from 14high-risk HPV types (16,18,31,33,35,39,45,51,52,56,58,59,66,68).Cervical sources are required for HPV testing.If a vaginal source from a patient who has had atotal hysterectomy with removal of cervix wassubmitted, please contact the testing laboratoryfor alternative testing options.For additional information, please refer tohttp://education.DocOnYou/faq/TIU781n4(This link if provided for information/educational purposes only.)THIS TEST WAS PERFORMED AT:[facility] [place] [phone] ADHIKARI MD HPV mRNA E6/E7 TNP [facility] HPV 16 RNA TNP [facility] HPV 18/45 RNA [facility] 04/13/2024 8:21 AM EDT 04/14/2024 9:10 AM EDT Echo [facility] CYTOLOGY ORDERABLES F inal Result [facility] [address] [place] [phone] * HEPATITIS C AB W/REFL TO HCV RNA, QN, PCR (04/03/2022 8:04 AM EDT) HEPATITIS C ANTIBODY NON-REACT SIA NON-REACT SIA [facility] INDEX 0.04 <1.00 [facility] Comment: HCV antibody was non-reactive. There is no laboratory evidence of HCV infection. In most cases, no further action is required. However, if recent HCV exposure is suspected, a test for HCV RNA (test code 67849) is suggested. For additional information please refer to http://education.DocOnYou/faq/LQO95j2 (This link is being provided for informational/ educational purposes only.) 04/03/2022 8:04 AM EDT Jamie Mendez MD HISTORICAL/NON ORD ERABLE LABS Final Result [facility] [address] * Hm Colonoscopy (01/30/2021 8:36 AM EST) Historical Provider HEALTH MAINTENANCE Final Result from Last 3 Months or Most Recently Relevant to Health Maintenance Insurance [facility] MEDICAID STAND ADULT Care Teams Psychiatric Technician Relationship Specialty Start Date End Date Jamie Rashid MD [address] [place] [phone] PCP - General Internal Medicine 04/12/20
== END 2025-07-07 13:48 | disposition home or self-care (01) ==
LOC: HO.MAMMO 13:47
PROVIDERS: PCP Internal Medicine; Visit Provider Internal Medicine
DX: Z12.31 Encounter for screening mammogram for malignant neoplasm of breast (principal)
CPT/HCPCS: 77063; 77067

== ENCOUNTER → 2025-07-07 14:15 | Outpatient (BNV) | payer MEDICAID, SELFPAY | PROVIDERS: PCP Internal Medicine; Visit Provider Radiology Body Imaging | DX: Z12.31 Encounter for screening mammogram for malignant neoplasm of breast (principal) | CPT/HCPCS: 77063; 77067 ==